=== PATIENT | female | born 1960 | race Caucasian/White ===

== ENCOUNTER → 2017-12-23 | Outpatient (CLI) | payer OTHER ==
[~2017-12-23] MED LIST: BIOTIN10000 MC1 PO; CITRACAL-VIT D1 EACH PO; COLACE 100 MG100 MG PO; CRANBERRY500 M3 PO; EFFEXOR XR150 MG PO; FLEXERIL PO; NEURONTIN 300300 M1 PO; OZEMPIC0.25 MG/0. SUBQ; PROBIOTIC1 EAC1 PO; ROXICODONE5 M2 PO; ZYRTEC10 M5 PO; bariatric vitamin PO
--- NOTE | 2017-12-24 14:20 | PAINCON ---
[address] [address] PAIN MANAGEMENT CONSULTATION Name: ISABELLE VELOZ [id number] Admission: 12/23/17 Attend Phys: Vahe Dowling MD Discharge: Date of : 58 Report #: [id number] THIS REPORT FOR: //name// CC: Anitha Dowling DATE OF SERVICE: 12/23/2017 CHIEF COMPLAINT: Cervical pain and I have moved back to [place] from [place]. FOLLOWUP HISTORY: The patient is a 57-year-old female who lived in [place]. Her work for a gas company. They had to relocate in [place]. They have returned to [place]. She is happy with that. At this juncture, she would like to reestablish with a Pain Clinic. The patient has pain and discomfort in her shoulders, neck down in both arms, has had some stiffness in the middle of her back. She rates her pain as a 5/10 today. Sometimes it rates at a 7/10. She has had cervical fusion at C6-C7 about 2 years ago because of degenerative joint disease. She is limited in her ability to use her medications. She is unable to take medications with Tylenol secondary to some elevated liver function test. The patient states that she has a fatty liver. She has had a gastric bypass in the past. She has some generalized pain in her neck, tailbone, mid back area, and left arm. She states that she has been seen by a neurologist in the past. At that time, she was noted to have some lesions which were not inconsistent with multiple sclerosis. She is not having any symptomatology at this juncture. She has noted on occasion some numbness in her left face as well as some numbness in the foot and leg. She has a history of depression. ALLERGIES: SULFA ANTIBIOTICS. CURRENT MEDICATIONS: Venlafaxine 150 mg. Gabapentin 300 mg t.i.d. Oxycodone 5 q.8 hours p.r.n. for chronic pain, the patient takes 3 tablets per day, she is out of them at this juncture. Cyclobenzaprine 10 mg t.i.d. Bariatric multivitamins 6 every day. Biotin 1000 mcg daily. Citracal 500 international units. Calcium 630 mg. Probiotic 10 Ultra Strength. Stool softener. Docusate 100 mg 6 daily. Zyrtec. Cranberry 15,000 mg supplement. PAST MEDICAL HISTORY: Chronic pain; bilateral carpal tunnel; diabetes, improved after gastric bypass, lost greater than 100 pounds; depression; multiple sclerosis with MRI findings without physical manifestations at this point; and cervical radiculopathy. PAST SURGICAL HISTORY: Cholecystectomy in 1992, parathyroidectomy 1999, hysterectomy in 2012, Casie-en-Y gastric bypass in 2014, spine cervical C5/C6 [place] [address] PAIN MANAGEMENT CONSULTATION Name: ISABELLE VELOZ [id number] Admission: 12/23/17 Attend Phys: Vahe Dowling MD Discharge: Date of : 58 Report #: [id number] fusion 2016, rotator cuff surgery, left 2017, and stem cell injection, right knee with improvement 2017. SOCIAL HISTORY: She is retired. Has not worked for the last 4 years. Rarely drinks alcoholic beverages. REVIEW OF SYSTEMS: Questionnaire 12-point, generally good health, recent weight change, fatigue, weakness, headaches, hearing loss/ringing in the ears, swelling in the feet, ankle, and hands, incontinence, joint pain, joint stiffness, weakness of muscles and joints, muscle pain with cramps, back pain, varicose veins, numbness and tingling sensation as described above, and depression. LABORATORY DATA: No new laboratory is available, but old imaging indicates right knee pain, two views. Examination consists of 2 views. There is moderate joint space narrowing with endplate sclerosis and osteophyte formation involving the patellofemoral and medial femoral/tibial compartments with mild degenerative changes involving the lateral femoral/tibial compartment. No fracture or joint effusion is seen. Impression: Moderate to mild osteoarthritis. Exam left shoulder dated 04/10/2017, there is hypertrophic spurring along the undersurface of the AC joint capsule that may be indicative of impingement. There are hypertrophic changes about the greater tuberosity. There is no fracture or dislocation. Summary: Osteoarthritic spurring along the underside of the AC joint capsule. On 03/21/2017, pressure in shoulders, weightbearing view. There is preservation of the cervical lordosis with post-op fusion of C5 and C6. The fixation hardware appears intact. There are osteoarthritic changes affecting the zygapophyseal joints at the same level bilaterally is seen in the AP image. Open mouth study shows there is a narrowing of C1/C2 articulation, but the lateral mass of C1 is not displaced with respect to the body of C2. Summary: Post-op fusion changes at C5/C6 without osteoarthritic changes of the facets at the same level bilaterally. On 09/04/2016, medial knee pain, right. MRI: There is hypertrophic spurring about the medial/lateral and patellofemoral joints. There is mild osteochondral irregularity over the anterior articular surface of the lateral femoral condyle. There is focal bone marrow edema anteriorly within the lateral femoral condyle and moderate bone marrow edema anteriorly at the periphery of the medial tibial plateau. This is most likely degenerative. A joint effusion, small is present. Impression: There are degenerative changes about the knee. There is a tear of [facility] [address] [place] [address] PAIN MANAGEMENT CONSULTATION Name: ISABELLE VELOZ [facility]#: [id number] Admission: 12/23/17 Attend Phys: Vahe Dowling MD Discharge: Date of : 58 Report #: [id number] the medial meniscus. Electrodiagnostic laboratory dated 03/25/2017: EMG/NCV: Impression: 1. Abnormal nerve conduit activity. Today's electrodiagnostic evaluation is consistent with bilateral medial neuropathies at the wrist. These findings are consistent with the clinical diagnosis of carpal tunnel syndrome. There is mild evidence of denervation of the left APD muscle. 2. Abnormal EMG findings indicated neuropathic problem at/or proximal to the intervertebral foramen at the C6/5 level, matching the clinical impression of cervical radiculopathy involving the C5 nerve root. PAIN CLINIC ASSESSMENT: 1. History of osteoarthritis. The patient does have osteoarthritic changes in her knee as well as in her neck. 2. Height 5 feet 7 inches. Weight 230 pounds, BMI is 36. 3. VITAL SIGNS: Blood pressure 124/71, heart rate 76, respiratory rate 16, room air saturation 100%, and temperature 98.7. 4. Pain intensity 4/10. 5. Fall risk. The patient has not fallen in the last 3 months. 6. Blood thinner. The patient is not on a blood thinning medication. 7. History of hypertension. The patient is not being treated for hypertension. 8. Opioid therapy greater than 6 weeks. The patient is receiving oxycodone and has signed a contract to get her medication from one physician. 9. Risk assessment tool, low for opioid use. 10. Functional assessment tool. 11. Pain impact score 39/70, which indicates moderate amount of problems with activities of daily living secondary to her chronic pain. 12. Recreational drug use. The patient denies use of recreational drugs. 13. Tobacco: The patient denies use of tobacco. 14. Alcohol: The patient denies use of alcoholic beverages. PHYSICAL EXAMINATION: GENERAL: The patient is a well-developed, slightly obese white female. She appears her stated age. She is alert and oriented x 3. Speech is fluent. Affect is appropriate. HEENT: Normocephalic, atraumatic. Extraocular eye muscles intact. Sclerae nonicteric. Hearing within normal limits. Mucous membranes are moist. The patient sometimes has numbness in her left face. NECK: Without adenopathy or bruits. Two well-healed scars in the anterior portion of her neck, one from the cervical fusion, another for the parathyroidectomy, both well-healed and not noticeable. HEART: Regular rate. S1, S2. Mild systolic ejection murmur. LUNGS: Clear to auscultation without rales, rhonchi or wheezing. ABDOMEN: Protuberant. EXTREMITIES: Upper extremity muscle strength is judged to be 5/5. [place] [address] PAIN MANAGEMENT CONSULTATION Name: ISABELLE VELOZ Room: [facility]#: [id number] Admission: 12/23/17 Attend Phys: Vahe Dowling MD Discharge: Date of : 58 Report #: [id number] has some pain and discomfort in the left arm. Deep tendon reflexes are +1 in the left and right arm without triceps or brachioradialis reflexes. Muscle technician assistant strength 5/5. Lower extremity muscle strength is judged to be 5/5 without sensory changes. Ankle reflexes are absent. Patellar reflex is absent. The patient sometimes notes some numbness in her foot. She feels that that might be associated with the MS. IMPRESSION: 1. History of cervical radiculopathy. 2. Back pain with some lumbosacral pain. 3. Chronic left shoulder pain. 4. Depression. 5. Multiple sclerosis. 6. Elevated liver function test. 7. Type 2 diabetes without complications. 8. History of gastrointestinal problems/irritation secondary to gastric bypass surgery -- the patient does not take nonsteroidal anti-inflammatory medications because of this. RECOMMENDATIONS: We have discussed treatment options with the patient. She feels that her use of oxycodone 5 mg 1 p.o. t.i.d. has been quite beneficial over time. She would like to continue with this medication. States that she gets her medications from one source. Has not had a problem with this medication in the past and would like to have a continued. She finds that Flexeril 10 mg 1 p.o. t.i.d. is helpful with muscle spasms. Also, she feels that gabapentin remains helpful with the pain. She would like to continue with this. She has had some problems with elevated liver function test. Therefore, we will use oxycodone/Roxicodone without Tylenol. We will provide the patient with a script for oxycodone. She will take this medication as prescribed. We have discussed the problems with opioid medications. They can cause addiction as well as tolerance with prolonged use. The patient feels that these medications are helpful and would like to continue their use. The patient is also scheduled to follow up with physical therapy by her primary. We would like to thank you for letting us participate in her care. We hope she continues to improve. <ELECTRONICALLY SIGNED> By: Vahe Dowling MD 12/24/17 1420 [id number]. Joe Dowling MD /nt
== END ==
LOC: M.PC 00:28
DX: M19.012 Primary osteoarthritis, left shoulder (principal); M17.11 Unilateral primary osteoarthritis, right knee; M54.12 Radiculopathy, cervical region; E11.9 Type 2 diabetes mellitus without complications; M25.712 Osteophyte, left shoulder; G89.29 Other chronic pain; M25.512 Pain in left shoulder; G35 Multiple sclerosis; F32.9 Major depressive disorder, single episode, unspecified; R79.89 Other specified abnormal findings of blood chemistry

== ENCOUNTER → 2018-01-21 | Outpatient (CLI) | payer OTHER ==
--- NOTE | 2018-01-22 07:04 | PAINCON ---
[facility] [address] [place] [address] PAIN MANAGEMENT CONSULTATION Name: ISABELLE VELOZ Room: [facility] L[facility]#: [id number] Admission: 01/21/18 Attend Phys: Sarah Nicole Discharge: Date of : 58 Report #: [id number] THIS REPORT FOR: //name// CC: Anitha Nevarez DATE OF SERVICE: 01/21/2018 The patient is a 57-year-old female being treated for cervical radiculopathy, status post ACDF with osteoarthritis affecting multiple joints, primarily right knee. Last seen in pain clinic 12/23/2017, seen in consultation by Dr. Joe Dowling. Continued on oxycodone 5 mg t.i.d., Flexeril as needed. History of increased LFTs noted, hence no acetaminophen ordered with the oxycodone nor recommendations for extensive use of NSAID agents. The patient returns to pain clinic today. She notes she had a stem cell injection of the right knee last fall at [facility], feels that this is efficacious, still has paresthesia in the left side of her body literally from her head to her foot. States she has been followed by neurology for "brain lesions" on diagnostic studies that were felt to be compatible with multiple sclerosis. She is seeing a neurologist, I believe later next week. She notes following a left rotator cuff repair surgery in April 2017 with physical therapy, the left arm is getting a little better, still some pain in the left shoulder. Primary pain is low back, buttock. The patient was following bariatric surgery in May 2015 (the patient's maximum weight was 317. She had a theodora of 190 pounds). Her axial back pain did improve. PHYSICAL EXAMINATION: GENERAL: Currently, she notes her subjective pain score is 1 on a VAS. Weight is up a little bit again up to about 240 pounds, BMI is 37.9 kilograms per meter squared. VITAL SIGNS: Blood pressure 128/78, pulse 83, respirations 16. NECK: Cervical range of motion is actually remarkably good status post ACDF. Still some weakness in the left shoulder with range of motion, primary cervical radicular symptoms and axial back pain. Rises from chair using armrest. Gait is tandem. We reviewed the fact that opiate medications are being used to provide analgesia adequate to support activities of daily living, not attempting to achieve a specific pain score on the 0-10 Visual Analog Scale. The current opiate medications are providing sufficient analgesia to allow the patient to participate in activities of daily living. The patient is not exhibiting any aberrant behavior suggestive of drug diversion. [place] [address] PAIN MANAGEMENT CONSULTATION Name: ISABELLE VELOZ [id number] Admission: 01/21/18 Attend Phys: aSrah Nicole Discharge: Date of : 58 Report #: [id number] adverse reactions to medications. The patient is not suffering from daytime somnolence or mental acuity changes. The patient is managing opiate-induced constipation with appropriate [id number]-[id number] agents and dietary considerations. The patient was counseled on concern for caution with operating a motor vehicle while using opiate medications. A physical exam was performed and the patient's functional status was evaluated. All patients with back pain were advised against the bed rest greater than 4 days and were advised to return to normal activities. Pain score assessment was noted and the treatment plan was reviewed with the patient. All current medications, both prescribed and OTC were reviewed and reconciled on the electronic medical record. Tobacco screening was accomplished and smoking cessation was advised when indicated. BMI was noted and diet/exercise modification was recommended for all patients following outside normal parameters. I reviewed with the patient today their responsibilities to safeguard prescription medications, reviewed their responsibility to utilize medications only as prescribed by the physician. They are to seek and receive pain medications only from 1 physician group ( [facility]). They are to use 1 pharmacy and keep the clinic informed if they change pharmacies. Their responsibilities include making followup visits in a timely fashion and to avoid abrupt discontinuation of medication usage. Their responsibilities further include bringing their medications (bottles from the pharmacy with residual pills) to the visit for possible confirmation of pill counts and the patient understands it is their responsibility to submit to random drug screens to ensure both that the medications prescribed are present, and that no other controlled substances are present. All prescriptions provided today were generated electronically. ASSESSMENT: Symptomatic axial back pain, cervical radiculopathy, status post anterior cervical discectomy and fusion and osteoarthritis affecting right knee requiring complex medication management. RECOMMENDATIONS: I have taken the liberty of renewing oxycodone 5 mg t.i.d. Follow up with Dr. Joe Dowling. She has a neurology workup for left-sided paresthesia (MS?). We will defer any interventional therapy, i.e. cervical epidural injection, etc. until neurology exam is complete. <ELECTRONICALLY SIGNED> By: Niko Nevarez DO 01/22/18 0704 [id number] [id number] Nevarez DO /nt
== END ==
LOC: M.PC 01-20 09:40
DX: M54.12 Radiculopathy, cervical region (principal); M17.11 Unilateral primary osteoarthritis, right knee; Z79.899 Other long term (current) drug therapy

== ENCOUNTER → 2018-02-24 | Outpatient (CLI) | payer OTHER ==
--- NOTE | 2018-02-27 08:37 | PAINCON ---
[address] [address] PAIN MANAGEMENT CONSULTATION Name: ISABELLE VELOZ [facility] [id number] Admission: 02/24/18 Attend Phys: Vahe Dowling MD Discharge: Date of : 58 Report #: [id number] THIS REPORT FOR: //name// CC: Anitha Dowling DATE OF SERVICE: 02/24/2018 CHIEF COMPLAINT: Pain in the back, neck and shoulders. HISTORY OF PRESENT ILLNESS: The patient has been seen in the Pain Clinic as a result of moving and relocating to [place]. 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 She has come to the Pain Clinic to reestablish a pain clinic presence. She has had a cervical fusion at the C6-C7 about 2 years ago because of degenerative joint disease. Still has some limited ability to engage in activities of daily living because of the pain. She does have elevated liver function tests. She is unable to take Tylenol medication. She also says there is a fatty component to the liver problem. She has had a gastric bypass in the past. She has generalized pain in her neck, tailbone, mid back and left arm. She has been seen in the past by a neurologist. She has been told that she has some lesions in her brain that are somewhat consistent with multiple sclerosis. At this time, she is having episodic problems with some numbness in her left face, left foot and leg. She also has a history of depression. She is going to be examined with EMG testing in the future. The patient stopped the use of gabapentin. She is not sure that she noticed a significant change in her pain or discomfort. She feels that she continues to have "internal tremors." They have affected her left side. She feels that the oxycodone and Flexeril are beneficial. Rates her pain as a 3/10 at this juncture. ALLERGIES: SULFA. CURRENT MEDICATIONS: Venlafaxine 150 mg, the patient stopped gabapentin, oxycodone 5 one q. 8 hours p.r.n. for chronic pain, the patient takes up to 3 tablets per day. Cyclobenzaprine 10 mg t.i.d., multivitamins, biotin 1000 mcg, Citracal 500 international units, calcium 630 mg, Probiotic 10 Ultra Strength, stool softener, Docusate 100 mg 6 daily, Zyrtec, cranberry 15,000 mg supplement. PAIN CLINIC ASSESSMENT: 1. History of osteoarthritis. The patient feels that she has arthritic changes in her spine, has had neck surgery in the C6-C7 area. 2. Height 5 feet 7 inches, weight 232 pounds, BMI is 36.3. 3. Vital Signs: Blood pressure 131/72, heart rate 85, respiratory rate 16, room air saturation 98%, temperature 98.0. 4. Pain score 3/10. [place] [address] PAIN MANAGEMENT CONSULTATION Name: ISABELLE VELOZ [facility] [id number] Admission: 02/24/18 Attend Phys: Vahe Dowling MD Discharge: Date of : 58 Report #: [id number] 5. Fall risk. The patient has not fallen in the last 3 months. 6. Blood thinner. The patient is not on a blood thinning medication. 7. History of hypertension. The patient is not being treated for hypertension. 8. Opioid therapy greater than 6 weeks. The patient is receiving opioid medication from the Pain Clinic with her [facility]. 9. Risk assessment tool, low for opioid use. 10. Functional assessment tool. 11. Recreational drug use. 12. Tobacco. 13. Alcohol use. The patient denies use of any of these items. PHYSICAL EXAMINATION: GENERAL: The patient is a well-developed white female. Slightly obese. Affect is appropriate. Speech is fluent. HEENT: Normocephalic, atraumatic. Extraocular eye muscles intact. Sclerae nonicteric. Mucous membranes are moist. Hearing is within normal limits. NECK: Without complaints of adenopathy. At this juncture, well-healed scar. HEART: Regular rate. ABDOMEN: Nontender. LUNGS: Clear to auscultation. EXTREMITIES: Upper extremity muscle strength is judged to be 5/5 for the major muscle groups in the upper extremity. The patient is without significant scoliosis, kyphosis or lordosis. The patient complains of some pain and numbness on the left side of her body involving her arms and head. She has some mid back discomfort. IMPRESSION 1. Benign multiple sclerosis. 2. Fatty liver. 3. History of gastric bypass. 4. Mid back pain. 5. Left arm pain. 6. History of depression. 7. History of cervical radiculopathy. RECOMMENDATIONS: We discussed treatment options with the patient. We will continue with her current medications. A script for her medications have been rewritten. The patient states that the MRI showed some new lesions in her brain. The patient states that she is going to have EMG study done in the near future. The patient states that she gets "tremors as a result of her benign multiple sclerosis. We will renew her medications of oxycodone 5 mg q. 8 hours p.r.n., Flexeril 10 mg t.i.d., biotin 10,000 mg, vitamin D3, Zyrtec 10 mg, Cranberry extract, Colace 100 mg capsules 6 times daily for constipation, lactobacillus probiotic, Effexor XR 150 mg, multivitamin, Ozempic 0.25 mg per week injection. She will follow up in the future as [place] [address] PAIN MANAGEMENT CONSULTATION Name: ISABELLE VELOZ Room: [facility]#: [id number] Admission: 02/24/18 Attend Phys: Vahe Dowling MD Discharge: Date of : 58 Report #: [id number] thank you for letting us participate in her care. We hope she continues to improve. <ELECTRONICALLY SIGNED> By: Vahe Dowling MD 02/27/18 0837 0037 [id number]. Joe Dowling MD /nt
== END ==
LOC: M.PC 04:49
DX: M54.12 Radiculopathy, cervical region (principal); G35 Multiple sclerosis; K76.0 Fatty (change of) liver, not elsewhere classified; M54.5 Low back pain; M25.512 Pain in left shoulder

== ENCOUNTER → 2018-03-24 | Outpatient (CLI) | payer OTHER ==
--- NOTE | 2018-04-27 10:30 | PAINCON ---
[address] [address] PAIN MANAGEMENT CONSULTATION Name: ISABELLE VELOZ Room: [facility] MAXIMINO Lentz#: [id number] Admission: 03/24/18 Attend Phys: Vahe Dowling MD Discharge: Date of : 58 Report #: [id number] THIS REPORT FOR: //name// CC: Anitha Dowling DATE OF SERVICE: 03/24/2018 COMPLAINT: Back, neck, and shoulder pain. HISTORY OF PRESENT ILLNESS: The patient is a 57-year-old female who has been followed in the Pain Clinic because of chronic cervical pain. She has pain and discomfort involving her neck, back and shoulders. It has been problematic since 2016. As you recall, she relocated to [place]. 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 She has a history of cervical fusion at C6-C7. She still notes some pain and discomfort involving her neck. This is improved significantly with use of her medication oxycodone. Takes about 3 tablets daily. She also has some problems with her liver. We have purposely decreased the amount of Tylenol that she gets. She has been seen in the past by a neurologist, told that she has some lesions in her brain that are somewhat consistent with multiple sclerosis. She has not noticed any new problems since we saw her last. She had been having problems with numbness in her left face, left foot and leg. Has a history of depression. Feels overall that her pain medications are helpful and rates her pain as a 4/10. ALLERGIES: SULFA. CURRENT MEDICATIONS: Venlafaxine 150 mg, oxycodone 5 mg q.8h. p.r.n. chronic pain, cyclobenzaprine 10 mg t.i.d., multivitamin, biotin 1000 mcg, Citracal 500 IU, calcium 630 mg, probiotic, stool softener, docusate 100 mg 6 daily, Zyrtec, cranberry 15,000 mg supplement. PAIN CLINIC ASSESSMENT: 1. History of osteoarthritis. The patient does have some arthritic changes in her spine. Has had surgery with fusion in her neck at C6-C7. 2. Height 5 feet 7 inches, weight 227 pounds, BMI is 36. 3. Vital signs: Blood pressure 123/64, heart rate 81, respiratory rate 16, room air saturation 96%, temperature 98.3. Pain score 4/10. 4. Fall risk. The patient has not fallen in the last 3 months. 5. Blood thinner. The patient is not on a blood thinning medication. 6. Hypertension. The patient is not being treated for hypertension. 7. Opioids. The patient receives her medications from [facility], the [facility]. 8. Risk assessment tool, low for use of opioid. 9. Functional assessment tool. 10. Recreational drug use. The patient denies [place] [address] PAIN MANAGEMENT CONSULTATION Name: ISABELLE VELOZ [facility] [id number] Admission: 03/24/18 Attend Phys: Vahe Dowling MD Discharge: Date of : 58 Report #: [id number] 11. Tobacco: The patient denies use of tobacco. 12. Alcohol: The patient denies use of alcoholic beverages. PHYSICAL EXAMINATION: GENERAL: The patient is a well-developed, well-nourished white female. Appears appropriate for age. Slightly obese. Speech is fluent. HEENT: Normocephalic and atraumatic. Extraocular eye muscles intact. Sclerae nonicteric. Mucous membranes are moist. Hearing is within normal limits. NECK: Without complaints or adenopathy. At this juncture, the patient has well-healed scar in the anterior portion of her neck. HEART: Regular rate and rhythm. ABDOMEN: Nontender. LUNGS: Clear to auscultation. EXTREMITIES: Upper extremity muscle strength is judged to be 5/5 for the major muscle groups. The patient is without significant scoliosis, kyphosis or lordosis. The patient does complain of some pain and discomfort and numbness in the left side of her body involving her arms, head, has some in the area of her face. Has some mid back discomfort as well. ASSESSMENT: 1. Benign multiple sclerosis. 2. Fatty liver. 3. History of gastric bypass. 4. Mild back pain. 5. Left arm pain. 6. History of depression. 7. History of cervical radiculopathy. RECOMMENDATIONS: We discussed treatment options with the patient. We will continue with her current medical regimen of oxycodone 5 mg. The patient has been given a script for oxycodone as well as Flexeril. She will continue to take these medications as prescribed. She states that they are not causing any problems with her mentation or ability to engage in activities of daily living. She will call us if she has any problems with her medications. We would like to thank you for letting us participate in her care. We hope she continues to improve. <ELECTRONICALLY SIGNED> By: Vahe Dowling MD 04/27/18 1030 1021 [id number]. Joe Dowling MD /nt
== END ==
LOC: M.PC 04:47
DX: M54.12 Radiculopathy, cervical region (principal); K76.0 Fatty (change of) liver, not elsewhere classified; G35 Multiple sclerosis; M25.512 Pain in left shoulder; M54.5 Low back pain; F32.9 Major depressive disorder, single episode, unspecified; G89.29 Other chronic pain; Z79.899 Other long term (current) drug therapy

== ENCOUNTER → 2018-04-21 | Outpatient (CLI) | payer OTHER ==
--- NOTE | 2018-04-27 10:00 | PAINCON ---
[address] [address] PAIN MANAGEMENT CONSULTATION Name: ISABELLE VELOZ Room: [facility] V[facility]NIE Mary Carmen#: [id number] Admission: 04/21/18 Attend Phys: Vahe Dowling MD Discharge: Date of : 58 Report #: [id number] THIS REPORT FOR: //name// CC: Anitha Dowling DATE OF SERVICE: 04/21/2018 FOLLOWUP HISTORY: Neck pain, back pain and shoulder pain. HISTORY: The patient is a 57-year-old female who has been followed in the pain clinic because of cervical radicular pain. She has pain and discomfort, which radiates down into her arm, back and shoulders. She notes that this has been problematic since 2016. She and her are relocated [facility]. She works for the [employer]. Has had a cervical fusion at C6/C7. Still has pain and discomfort involving her neck. Also, has some problems with MS. Overall, her MS is reasonably controlled at this juncture. Notes that with the multiple sclerosis that there is a tremor associated with it. Weather has changed a little bit and she has left tremor. Notes that the multiple sclerosis, symptomatology improved in the cold weather, but the neck and shoulder is exacerbated by the cold weather. Feels that things are going reasonably well. She returned today for renewal of her medications. She has taken the medication as prescribed. Feels that Flexeril is helpful as well. Notes that activities of daily living can be very strenuous and challenging. ALLERGIES: SULFA. CURRENT MEDICATIONS: Venlafaxine 150 mg, oxycodone 5 mg q.8 hours p.r.n., chronic pain, Flexeril 10 mg t.i.d., multivitamin, biotin 1000 mcg, Citracal 500 mg, calcium 600 mg, probiotic, stool softener, docusate 100 mg 6 times daily, Zyrtec, cranberry 15,000 mg supplement. PAIN CLINIC ASSESSMENT/PQRS: 1. History of osteoarthritis. The patient has some arthritic changes involving her knee. She has undergone a stem cell injection involving the right knee. 2. Arthritis rheumatoid the patient has not been treated for rheumatoid arthritis. 3. Height 5 feet 7 inches, weight 222 pounds, BMI is 34.8. 4. Vital signs: Blood pressure 121/68, heart rate 84, respiratory rate 16, room air saturation 99% and temperature 98.2. 5. Pain intensity 09/20. 6. Fall risk. The patient has not fallen in the last 3 months. 7. Blood thinner. The patient is not on a blood thinning medication. 8. Hypertension. The patient is being treated for hypertension. 9. Opioid greater than 6 weeks. The patient is on opioid regimen medicine. Get it from one source, [place] [address] PAIN MANAGEMENT CONSULTATION Name: ISABELLE VELOZ Room: [facility]#: [id number] Admission: 04/21/18 Attend Phys: Vahe Dowling MD Discharge: Date of : 58 Report #: [id number] 10. Risk assessment tool, low for opioid use. 11. Functional assessment tool. 12. Recreational drug use. The patient denies. 13. Tobacco: The patient denies use of tobacco. 14. Alcohol: The patient denies use of alcoholic beverages. PHYSICAL EXAMINATION: GENERAL: The patient is a well-developed, well-nourished white female. Appears her stated age. Slightly obese. Speech is fluent. HEENT: Normocephalic, atraumatic. Extraocular eye muscles are intact. Sclerae nonicteric. Mucous membranes are moist. Hearing is within normal limits. NECK: Without adenopathy. Has some limited movement in her neck secondary to her anterior fusion. There is a well-healed scar on the anterior portion of her neck. HEART: Regular rate. S1, S2. ABDOMEN: Nontender. Bowel sounds present. LUNGS: Clear to auscultation without rhonchi or rales. EXTREMITIES: Upper extremity strength 5/5 for the major muscle groups. The patient is without significant scoliosis, kyphosis or lordosis. The patient does complain of pain and discomfort with some numbness in the left side of her body involving her arms, head and some in the area of her face. Has had some mild back discomfort as well. ASSESSMENT: 1. Benign multiple sclerosis-stable, improved with cooling temperatures. 2. Fatty liver. 3. History of gastric bypass. 4. Mild back pain. 5. Left arm pain. 6. History of depression. 7. History of cervical radiculopathy status post fusion. RECOMMENDATIONS: We discussed treatment options with the patient. At this juncture, she feels that her medications are working reasonably well. She is not having any problems with her medications. We have discussed the use of opioid medications and their possible complications. She is on a reasonable amount of medications. She has been on it for quite some time. It seems stable. I think it is a good level. It enables her to engage in activities of daily living she has much more problems participating in without its use. We will renew her medication. She will call us if she has any concerns. We would like to thank you for letting us participate in her care. We hope she continues to improve. <ELECTRONICALLY SIGNED> By: Vahe Dowling MD 04/27/18 1000 [id number] 1023N. Joe Dowling MD /nt
== END ==
LOC: M.PC 04:30
DX: M19.90 Unspecified osteoarthritis, unspecified site (principal); F11.20 Opioid dependence, uncomplicated; I10 Essential (primary) hypertension; M06.9 Rheumatoid arthritis, unspecified

== ENCOUNTER → 2018-05-19 | Outpatient (CLI) | payer OTHER ==
--- NOTE | 2018-05-27 16:38 | PAINCON ---
[address] [address] PAIN MANAGEMENT CONSULTATION Name: ISABELLE VELOZ Room: [facility] MAXIMINO Lentz#: [id number] Admission: 05/19/18 Attend Phys: Vahe Dowling MD Discharge: Date of : 58 Report #: [id number] THIS REPORT FOR: //name// CC: Anitha Dowling DATE OF SERVICE: 05/19/2018 FOLLOWUP COMPLAINT: Here for medication renewal of her about CBD oil, wonder is it worse using. FOLLOWUP HISTORY: The patient is a 57-year-old female who has followed in the pain clinic because of cervical radiculopathy. She continues to have pain and discomfort. Notes the pain radiates down into her arm, back and shoulders, has been problematic since 2016. She and her have relocated to [place]. She works for the [employer], has had a cervical fusion at C6-C7. Still continues to have pain and discomfort involving her neck. Has some problems with multiple sclerosis. Overall, she feels that things are going reasonably well. Her multiple sclerosis is stable at this juncture. Does have a tremor associated with it. Notes some changes in the weather, this affects her pain as well. She has pain that radiates down into her neck and into her shoulders when the weather is colder. She feels that her medications of oxycodone continue to be efficacious. She would like to have her medications renewed. ALLERGIES: SULFA. CURRENT MEDICATIONS: Venlafaxine 150 mg, oxycodone 5 mg 1 p.o. every 8 hours chronic pain, Flexeril 10 mg t.i.d., multivitamin, Biaxin 1000 mcg, Citracal 500 mg, calcium 600 mg, probiotic, stool softener, docusate 100 mg 6 times daily, Zyrtec, cranberry 15,000 mg supplements. PAIN CLINIC ASSESSMENT/PQRS: 1. History of osteoarthritis with arthritic changes involving her knee, has undergone stem cell injections in the knee on the right and found that beneficial. The patient is not being treated for rheumatoid arthritis. 2. Height 5 feet 7 inches, weight 222 pounds, BMI is 34.7. 3. Vital signs: Blood pressure 126/77, heart rate 77, respiratory rate 16, room air saturation is 99, temperature 97.9. 4. Pain intensity 4 out of 10. 5. Fall risk. The patient has not fallen in the last 3 months. 6. Blood thinner. The patient is not on a blood thinning medication. 7. Hypertension. The patient is being treated for hypertension. 8. Opioids greater than 6 weeks. The patient gets her medication from one source, the pain clinic. 9. Risk assessment tool, low for overuse. 10. [place] [address] PAIN MANAGEMENT CONSULTATION Name: ISABELLE VELOZ Room: [facility]#: [id number] Admission: 05/19/18 Attend Phys: Vahe Dowling MD Discharge: Date of : 58 Report #: [id number] 11. Recreational drug use. The patient denies use of recreational drugs. 12. Tobacco: The patient denies use of tobacco. 13. Alcohol: The patient denies use of alcoholic beverages. PHYSICAL EXAMINATION: GENERAL: The patient is well-developed, well-nourished white female. Appears her stated age. She is slightly obese. Speech is fluent. Status post gastric bypass, states that her weight is sometimes fluctuating. It is decreased and at this juncture, HEAD, EYES, EARS, NOSE, AND THROAT: Normocephalic, atraumatic. Extraocular eye muscles intact. Sclerae nonicteric. Mucous membranes are moist. Hearing is within normal limits. NECK: Without adenopathy. The patient has some limited movement in her neck secondary to anterior fusion, has a well-healed scar on the anterior portion of her neck. HEART: Regular rate. S1, S2. ABDOMEN: Nontender, bowel sounds present. LUNGS: Clear to auscultation without rhonchi or rales. EXTREMITIES: Upper extremity muscle strength 5/5 for the major muscle groups. The patient is without significant scoliosis, kyphosis or lordosis. The patient complains of pain and discomfort with some numbness in her left side of her body involving her arms, head and some areas of her face associated with the multiple sclerosis. Some mild back pain and discomfort as well. ASSESSMENT: 1. Benign multiple sclerosis, stable -- improved with cooling temperatures. 2. Fatty liver. 3. History of gastric bypass. 4. Mild back pain. 5. Left arm pain. 6. History of depression. 7. History of cervical radiculopathy status post fusion. RECOMMENDATIONS: We discussed treatment options with the patient. At this juncture, she feels that her medications are working reasonably well. I do not have any problems with her medications. She has seen the advertisement for CBD oil. She has some inquiries as to whether or not this would be helpful for her. I explained that I am not really that well versed on it. In some places it is legal. I think it would be a reasonable thing to try if she felt that it might be beneficial. She have to get information from those who sell the medication. We will continue with her current medication regimen. She will call us if she has any problems. A script for oxycodone 5 mg 1 p.o. t.i.d. has been rewritten. [place] [address] PAIN MANAGEMENT CONSULTATION Name: ISABELLE VELOZ Room: [facility]#: [id number] Admission: 05/19/18 Attend Phys: Vahe Dowling MD Discharge: Date of : 58 Report #: [id number] We would like to thank you for letting us to participate in her care. We hope she continues to improve. <ELECTRONICALLY SIGNED> By: Vahe Dowling MD 05/27/18 1638 1027 1329N. Joe Dowling MD /[facility]
== END ==
LOC: M.PC 08:13
DX: G35 Multiple sclerosis (principal); K76.0 Fatty (change of) liver, not elsewhere classified; M54.5 Low back pain; M79.602 Pain in left arm; Z86.59 Personal history of other mental and behavioral disorders; Z98.84 Bariatric surgery status; Z79.899 Other long term (current) drug therapy; Z87.410 Personal history of cervical dysplasia

== ENCOUNTER → 2018-06-16 | Outpatient (CLI) | payer OTHER ==
--- NOTE | ~2018-06-16 | PAINCON ---
[facility] [address] [place] [address] PAIN MANAGEMENT CONSULTATION Name: ISABELLE VELOZ Room: [facility].#: [id number] Admission: 06/16/18 Attend Phys: Vahe Dowling MD Discharge: Date of : 58 Report #: [id number] THIS REPORT FOR: //name// CC: Anitha Dowling DATE OF SERVICE: 06/16/2018 FOLLOWUP COMPLAINT: Here for medications. Still having pain and discomfort in the upper neck area, shoulder, and back. FOLLOWUP HISTORY: The patient is a 57-year-old female who is followed in the pain clinic because of cervical radiculopathy. She continues to have pain and discomfort. Feels that her medications of oxycodone 5 mg 1 p.o. t.i.d. continues to be beneficial. Has pain that radiates down into her arms, back, shoulder and this has been problematic since 2016. As you may recall, she and her relocated to [place]. She has had surgery in the neck area. A cervical fusion at C6-C7 has been undertaken. As you may recall, she has some problems with multiple sclerosis. Overall, things in regards to her multiple sclerosis is reasonably stable. Does have some tremor associated with it. Notes that when the weather changes, the pain could be more problematic. The cold weather has not been very problematic. Warm weather is more of a problem. The patient has pain that is radiating down into her neck, shoulders, and feels that the oxycodone medication enable her to stay gainfully employed. She works for the [employer] company. ALLERGIES: SULFA. CURRENT MEDICATIONS: Venlafaxine 150 mg, oxycodone 5 mg one p.o. q.8 hours p.r.n., Flexeril 10 mg t.i.d., multivitamin, Biaxin 1000 mcg, Citracal 500 mg, calcium 600 mg, probiotic, stool softener, docusate 100 mg 6 times daily, Zyrtec, cranberry 15,000 mg supplements. PAIN CLINIC ASSESSMENT/PQRS: 1. History of osteoarthritis involving the knee. The patient has pain in the neck area as well, status post cervical fusion at C6-C7. 2. Height 5 feet 7 inches, weight 220 pounds, BMI is 34. 3. Vital Signs: Blood pressure 119/75, heart rate 72, respiratory rate 18, room air saturation 99%, temperature 98.1. 4. Pain score 4/10. 5. Fall history: The patient has not fallen in the last 3 months. 6. Blood thinner. The patient is not on a blood thinning medication. 7. Hypertension. The patient is being treated for hypertension. 8. Opioid greater than 6 weeks. The patient receives her medications from 1 source[place] [address] PAIN MANAGEMENT CONSULTATION Name: ISABELLE VELOZ Room: [facility]#: [id number] Admission: 06/16/18 Attend Phys: Vahe Dowling MD Discharge: Date of : 58 Report #: [id number] 9. Risk assessment tool, low for narcotic use. 10. Functional assessment tool. 11. Recreational drug use. The patient denies use of recreational drugs. 12. Tobacco: The patient denies use of tobacco. 12. Alcohol: The patient denies use of alcoholic beverages. PHYSICAL EXAMINATION: GENERAL: The patient is a well-developed, well-nourished white female. Appears her stated age. She is alert and oriented x 3. Affect is appropriate. Speech is fluent. The patient is status post gastric bypass and has noted some fluctuations in her weight. HEENT: Normocephalic, atraumatic. Extraocular eye muscles intact. Sclerae nonicteric. Mucous membranes are moist. Hearing is within normal limits. NECK: Without JVD or adenopathy, some limited movement in her neck secondary to anterior fusion with a well-healed scar on the anterior portion of her neck. HEART: Regular rate. S1, S2. ABDOMEN: Nontender. Bowel sounds present. LUNGS: Clear to auscultation without rhonchi or rales. EXTREMITIES: Upper extremity muscle strength is judged to be 5-/5 for the major muscle groups in the upper extremity. The patient without significant scoliosis, kyphosis, or lordosis. The patient does complain of some pain and discomfort in the left side of her body involving her arms with some pain in the neck as well as the patient has had some face pain associated with her multiple sclerosis. Overall, things are going reasonably well. Rates her pain as 4/10. ASSESSMENT: 1. Benign multiple sclerosis -- stable. 2. Fatty liver. 3. History of gastric bypass. 4. Back pain, chronic. 5. Left arm pain. 6. History of depression. 7. History of cervical radiculopathy status post fusion. RECOMMENDATIONS: We discussed treatment options with the patient. Risks and benefits of her medication were again reviewed. The patient feels that the medications are helpful. She is getting about 70% improvement with use of her medication. She has had no complications with them. Feels that the Flexeril as well as oxycodone continue to be beneficial. She will follow up in the near future. We would like to thank you for letting us participate in her care. A script for oxycodone 5 mg 1 p.o. t.i.d. have been written. By: [id number]. Joe Dowling MD /[place]
== END ==
LOC: M.PC 05:23
DX: G35 Multiple sclerosis (principal); K76.0 Fatty (change of) liver, not elsewhere classified; G89.29 Other chronic pain; M54.5 Low back pain; F32.9 Major depressive disorder, single episode, unspecified; M54.2 Cervicalgia; M79.602 Pain in left arm; Z98.84 Bariatric surgery status

== ENCOUNTER → 2018-07-16 | Outpatient (CLI) | payer OTHER ==
--- NOTE | ~2018-07-16 | PAINCON ---
[facility] [address] [place] [address] PAIN MANAGEMENT CONSULTATION Name: ISABELLE VELOZ Room: [facility].R.#: [id number] Admission: Attend Phys: Vahe Dowling MD Discharge: Date of : 58 Report #: [id number] THIS REPORT FOR: //name// CC: Anitha Dowling DATE OF SERVICE: 07/16/2018 CHIEF COMPLAINT: Here for medication renewal. HISTORY: The patient is a 57-year-old female who has been followed in the pain clinic. She suffers from chronic pain in her upper back, shoulders, and mid back. She has been followed by the pain clinic because of cervical radiculopathy. She has pain, which she rates as 7-8/10 at this juncture. She feels that her medications of oxycodone 5 mg 1 p.o. t.i.d. continues to be beneficial. As you may recall, she has problems with her liver. She is unable to take any medications with Tylenol secondary to elevated liver function tests. She is unable to take nonsteroidal anti-inflammatory medications as well. Overall, she feels that the oxycodone medication is helpful. She has had cervical fusion at C6-C7. She also has multiple sclerosis. Overall, things feel stable at this moment. Continues to have a tremor associated with her condition. Notes that the change in weather, which is about 25 degrees today can be problematic. Continues to have some pain that radiates down her neck, shoulders, and mid back pain. ALLERGIES: SULFA. CURRENT MEDICATIONS: Venlafaxine 150 mg, oxycodone 5 mg 1 p.o. q. 8 hours p.r.n., Flexeril 10 mg t.i.d., multivitamin, Biaxin 1000 mcg, Citracal 500 mg, calcium 600 mg, probiotic, stool softener, docusate 100 mg 6 times daily, Zyrtec, and cranberry 15,000 mg supplements. PAIN CLINIC ASSESSMENT/PQRS: 1. History of osteoarthritis involving the knees. The patient has some changes in her neck and has had surgical fusion as well. This is at C6-C7. The patient is not being treated for rheumatoid arthritis. 2. Height 5 feet 7 inches, weight 215 pounds, BMI is 34. 3. Vital Signs: Blood pressure 115/70, heart rate 95, respiratory rate 16, room air saturation 99%, temperature 98.4. 4. Pain intensity 3-10. 5. Fall history: The patient has not fallen in the last 3 months. 6. Blood thinner. The patient is not on a blood thinning medication. 7. Hypertension. The patient is being treated for hypertension. 8. Opioid greater than 6 weeks. The patient receives her medication from [facility], [place] [address] PAIN MANAGEMENT CONSULTATION Name: ISABELLE VELOZ Room: [facility].#: [id number] Admission: Attend Phys: Vahe Dowling MD Discharge: Date of : 58 Report #: [id number] 9. Risk assessment tool, low for opioid use. 10. Functional assessment tool. 11. Recreational drug use. The patient denies. 12. Tobacco: The patient denies use of tobacco. 13. Alcohol: The patient denies use of alcoholic beverages. PHYSICAL EXAMINATION: GENERAL: The patient is a well-developed, well-nourished white female. Appears her stated age. She is alert and oriented x 3. Affect is appropriate. Speech is fluent. HEENT: Normocephalic, atraumatic. Extraocular eye muscles intact. Sclerae nonicteric. Mucous membranes are moist. Hearing is within normal limits. NECK: Without adenopathy, JVD. Some limitation secondary to anterior fusion, otherwise well-healed anterior neck incision. HEART: Regular rate. S1, S2. ABDOMEN: Nontender. Bowel sounds present. LUNGS: Clear to auscultation without rhonchi or rales. EXTREMITIES: Upper extremity muscle strength is judged to be 5-/5 for the major muscle groups in the upper extremity. The patient has some pain in the neck as well as the mid back and shoulder area. Notes some discomfort in the left side. ASSESSMENT: 1. Benign multiple sclerosis -- stable. 2. Fatty liver. 3. History of gastric bypass. 4. Back pain -- chronic. 5. Left arm pain. 6. History of depression. 7. History of cervical radiculopathy status post fusion C5/C6. RECOMMENDATIONS: We discussed treatment options. Overall, the patient feels things are going reasonably well. She would like to continue with the oxycodone. As you recall, she is unable to take the nonsteroidal anti-inflammatory medication secondary to history of gastric bypass. She is unable to take medicines with Tylenol secondary to elevated liver function. She has been given a script for her oxycodone 5 mg 1 p.o. t.i.d. She will call us if she has any concerns. We would like to thank you for letting us participate in her care. We hope she continues to improve. By: [id number]. Joe Dowling MD /PMT
== END ==
LOC: M.PC 09:50
DX: M54.12 Radiculopathy, cervical region (principal); M43.22 Fusion of spine, cervical region; M54.5 Low back pain; M25.512 Pain in left shoulder; K76.0 Fatty (change of) liver, not elsewhere classified; G35 Multiple sclerosis; F32.9 Major depressive disorder, single episode, unspecified; Z79.899 Other long term (current) drug therapy

== ENCOUNTER → 2018-08-13 | Outpatient (CLI) | payer OTHER ==
--- NOTE | ~2018-08-13 | PAINCON ---
[address] [address] PAIN MANAGEMENT CONSULTATION Name: ISABELLE VELOZ Room: [facility] Mary Carmen#: [id number] Admission: 08/13/18 Attend Phys: Vahe Dowling MD Discharge: Date of : 58 Report #: [id number] THIS REPORT FOR: //name// CC: Anitha Dowling DATE OF SERVICE: 08/13/2018 CHIEF COMPLAINT: Here for medication renewal. HISTORY: The patient is a 57-year-old female who has been followed in the pain clinic. As you recall, she has chronic pain involving her neck, back and shoulders of an osteoarthritic nature. She has not been treated for rheumatoid arthritis. Does have a history of cervical radiculopathy. She feels that her medications of oxycodone are helpful. She has problems with her liver. Because of her liver problems she is unable to take nonsteroidal or she is unable to take Tylenol medications because of elevated liver function tests. She is unable to take nonsteroidal anti-inflammatory medications. She has had a fusion in her neck at C6-C7. She is being treated for multiple sclerosis or she does have multiple sclerosis. She has a tremor associated with this condition. Notes that the weather change can be problematic. Today's temperature is 7 degrees above 0. Continues to have pain, which is problematic in the mid back as well as in her shoulders. Feels that SULFA is an allergy. CURRENT MEDICATIONS: Venlafaxine 150 mg, oxycodone 5 mg one p.o. t.i.d., Flexeril 10 mg t.i.d., multivitamin, Biaxin 1000 mcg, Citracal 500 mg, calcium 600 mg, probiotic, stool softener, docusate 100 mg 6 times daily, Zyrtec, cranberry 15,000 mg supplement. PAIN CLINIC ASSESSMENT/PQRS: 1. History of osteoarthritis involving the knees. The patient has some changes in her neck and had surgical fusion in the C6-C7 area. The patient is not being treated for rheumatoid arthritis. 2. Height 5 feet 7 inches, weight 220 pounds, BMI is 34.4. 3. Vital Signs: Blood pressure 107/77, heart rate 73, respiratory rate 16, room air saturation is 100%. Temperature 98%. 4. Pain score of 4/10. 5. Fall history: The patient has not fallen in the last 3 months. 6. Blood thinner. The patient is not on a blood thinning medication. 7. Hypertension. The patient has not been treated for hypertension. 8. Opioids greater than 6 weeks. The patient [facility]. 9. Risk assessment tool. 10. Functional assessment tool. 11. Recreational drug use. The patient [place] [address] PAIN MANAGEMENT CONSULTATION Name: ISABELLE VELOZ Room: [facility]#: [id number] Admission: 08/13/18 Attend Phys: Vahe Dowling MD Discharge: Date of : 58 Report #: [id number] 12. Tobacco: The patient denies use of tobacco. 13. Alcohol: The patient denies use of alcoholic beverages. PHYSICAL EXAMINATION: GENERAL: The patient is a well-developed, well-nourished white female. She appears her stated age. She is alert and oriented x 3. Her affect is appropriate. Speech is fluent. HEENT: Normocephalic, atraumatic. Extraocular eye muscles intact. Sclerae nonicteric. Mucous membranes are moist. NECK: Without adenopathy or JVD, has some limited movement in her neck, status post C6-C7 surgery. CARDIAC: Heart rate S1, S2. ABDOMEN: Nontender. Bowel sounds present. The patient has some mid back pain and discomfort. LUNGS: Clear to auscultation without rhonchi or rales. EXTREMITIES: Upper extremity muscle strength is judged to be 5-/5 for the major muscle groups in the upper extremity. The patient without significant scoliosis, kyphosis or lordosis. Lower extremity muscle strength is judged to be 5/5 for the major muscle groups in the lower extremity. ASSESSMENT: 1. Benign multiple sclerosis -- stable. 2. Fatty liver. 3. History of gastric bypass. 4. Back pain, chronic. 5. Left arm pain. 6. History of depression. 7. History of cervical radiculopathy, status post fusion C5/C6. RECOMMENDATIONS: We discussed treatment options with the patient. Risks and benefits of opioid medications were again discussed. Possible complications of their use could include addiction as well as development of tolerance. We explained to the patient that 75 p.o. daily. Diet from overdosing on medications. She feels that her medication is helpful. She has had a gastric bypass and is unable to take nonsteroidal anti-inflammatory medications. Has liver problems with elevated liver function and is unable to take Tylenol medication. She feels that she has been taking her oxycodone as prescribed. We reviewed the findings of the drug screen. Oxycodone findings were negative. Venlafaxine showed positive results. The patient states that she has been taking her medications. There is no diversion going on. She does recall not taking her medications, but there is possibility she may have used most of her medications prior to her last visit. We explained [place] [address] PAIN MANAGEMENT CONSULTATION Name: ISABELLE VELOZ Room: [facility]#: [id number] Admission: 08/13/18 Attend Phys: Vahe Dowling MD Discharge: Date of : 58 Report #: [id number] tested again in the future. We would like to thank you for letting us participate in her care. We hope she continues to improve. By: [id number]. Joe Dowling MD /PMT
== END ==
LOC: M.PC 05:11
DX: M17.0 Bilateral primary osteoarthritis of knee (principal); I10 Essential (primary) hypertension; F11.20 Opioid dependence, uncomplicated; Z91.81 History of falling

== ENCOUNTER → 2018-09-10 | Outpatient (CLI) | payer OTHER ==
--- NOTE | ~2018-09-10 | PAINCON ---
[address] [address] PAIN MANAGEMENT CONSULTATION Name: ISABELLE VELOZ Room: [facility] Mary Carmen#: [id number] Admission: 09/10/18 Attend Phys: Vahe Dowling MD Discharge: Date of : 58 Report #: [id number] THIS REPORT FOR: //name// CC: Anitha Dowling DATE OF SERVICE: 09/10/2018 CHIEF COMPLAINT: Cervical radicular pain, would like to undergo another injection and back, neck, and shoulder pain. HISTORY: The patient is a 57-year-old female, who has been followed in the pain clinic. As you may recall, she has pain in her neck, back, and shoulders because of osteoarthritic changes. She feels that her medications of oxycodone and Flexeril are helpful. She still continues to have pain, which has been problematic for a number of years. She states that because of her liver, she is unable to take nonsteroidal anti-inflammatory medications. She has had a fusion of her neck at C6-C7. She is being treated for multiple sclerosis. She feels overall that her status is stable. She has returned today for a renewal of her medications. She rates her pain as a 5/10. CURRENT MEDICATIONS: Venlafaxine 150 mg, oxycodone 5 mg one p.o. t.i.d., Flexeril 10 mg 1 p.o. t.i.d., multivitamin, Biaxin 1000 mcg, Citracal 500 mg, calcium 600 mg, probiotic, stool softener, docusate 100 mg 6 times daily, Zyrtec, and cranberry 15,000 mg supplement. ALLERGIES: THE PATIENT IS ALLERGIC TO SULFA. PAIN CLINIC ASSESSMENT AND PQRS: 1. Osteoarthritis involving the knees. The patient has some changes in her neck and has had cervical fusion at C6-C7. The patient has not been treated for rheumatoid arthritis. 2. Pain intensity is 5/10. 3. Fall history. The patient has not fallen in the last 3 months. 4. Blood thinner. The patient is not on a blood thinning medication. 5. Hypertension. The patient is not being treated for hypertension. 6. Opioids greater than 6 weeks. The patient receives her medication [facility]. 7. Risk assessment tool, low for opioid use. 8. Functional assessment tool. 9. Recreational drug use. The patient denies use of recreational drugs. 10. Tobacco: The patient denies use of tobacco. 11. Alcohol: The patient denies use of alcoholic beverages. PHYSICAL EXAMINATION: GENERAL: The patient is a well-developed, well-nourished, [place] [address] PAIN MANAGEMENT CONSULTATION Name: ISABELLE VELOZ Room: [facility]#: [id number] Admission: 09/10/18 Attend Phys: Vahe Dowling MD Discharge: Date of : 58 Report #: [id number] female. She appears her stated age. She is alert and oriented x 3. Her affect is appropriate. Speech is slow. Height is 5 feet 7 inches, weight is 220 pounds, and BMI is 34.4. VITAL SIGNS: Blood pressure is 121/77, heart rate is 84, respiratory rate is 16, room air saturation is 99%, and temperature is 98.3. HEENT: Normocephalic, atraumatic. Extraocular eye muscles intact. Sclerae nonicteric. Mucous membranes are moist. NECK: Without adenopathy, JVD, limited movement, range of motion. Status post C6-C7 surgical intervention. CARDIAC: Heart status stable. Heart rate is normal. S1, S2. ABDOMEN: Nontender. Bowel sounds present. The patient with some mid back pain, neck, and shoulder pain. EXTREMITIES: The patient is without significant scoliosis, kyphosis, or lordosis. Muscle strength in the upper extremity is judged to be 5-/5 for the major muscle groups and 5-/5 for the major groups in the lower extremity. ASSESSMENT: 1. Benign multiple sclerosis - stable. 2. Fatty liver. 3. History of gastric bypass. 4. Back pain, chronic. 5. Left arm pain. 6. History of depression. 7. Cervical radiculopathy, status post C5-C6 fusion. RECOMMENDATIONS: We have discussed treatment options with the patient. At this juncture, she feels her medications are working reasonably well. She would like to have the medications renewed. A script for her medications have been provided. She will continue with her medications as prescribed. Again, she does not take some medication secondary to her liver function tests, one includes Tylenol. The patient states that she continues to take her medication as prescribed. She will call us if she has any concerns. We would like to thank you for letting us to participate in her care. We hope she continues to improve. By: [id number]. Joe Dowling MD /BO
== END ==
LOC: M.PC 05:05
DX: M54.12 Radiculopathy, cervical region (principal); M43.22 Fusion of spine, cervical region; M54.5 Low back pain; G89.29 Other chronic pain; M79.602 Pain in left arm; G35 Multiple sclerosis; K76.0 Fatty (change of) liver, not elsewhere classified; F32.9 Major depressive disorder, single episode, unspecified; Z79.899 Other long term (current) drug therapy; Z98.84 Bariatric surgery status

== ENCOUNTER → 2018-10-08 | Outpatient (CLI) | payer OTHER ==
--- NOTE | ~2018-10-08 | PAINCON ---
[address] [address] PAIN MANAGEMENT CONSULTATION Name: ISABELLE VELOZ Room: [facility] Mary Carmen#: [id number] Admission: 10/08/18 Attend Phys: Vahe Dowling MD Discharge: Date of : 58 Report #: [id number] THIS REPORT FOR: //name// CC: Anitha Dowling DATE OF SERVICE: 10/08/2018 CHIEF COMPLAINT: Here for medication renewal. HISTORY: The patient is a 57-year-old female. She has a history of cervical pain and has undergone cervical epidural steroid injections in the past. She continues to have pain and discomfort in her back, neck, and in her shoulders. She has been decreasing her weight. She has lost 5 pounds. She is more active. She has a new puppy. Overall, things are going reasonably well. As you recall, she suffers from multiple sclerosis. At this juncture, it appears to be somewhat stable. She moved here from [place]. She rates her pain as a 3/10 at this point. Feels that the oxycodone is beneficial. Has returned today with a desire to undergo a renewal of this medication. CURRENT MEDICATIONS: Venlafaxine 150 mg, oxycodone 5 mg one p.o. t.i.d., Flexeril 10 mg 1 p.o. t.i.d., multivitamins, Biaxin 1000 mcg, Citracal 500 mg, calcium 600 mg, probiotic, stool softener, docusate 100 mg 6 times daily, Zyrtec, cranberry 15,000 mg supplement. ALLERGIES: THE PATIENT IS ALLERGIC TO SULFA. PAIN CLINIC ASSESSMENT/PQRS: 1. The patient has osteoarthritis involving her knees. She has had some changes in her neck and has had a cervical fusion at C6-C7. The patient has not been treated for rheumatoid arthritis. 2. Height 5 feet 7 inches, weight 215 pounds, BMI 33. 3. Vital signs: Blood pressure 103/77, heart rate 81, respiratory rate 16, room air saturation 99%, temperature 98.3. 4. Pain intensity 09/20. 5. Fall history: The patient has not fallen in the last 3 months. 6. Blood thinner. The patient is not on a blood thinning medication. 7. Hypertension. The patient is not being treated for hypertension. 8. Opioid greater than 6 weeks. The patient receives her medications from [facility]. 9. Risk assessment tool, low for opioid use. 10. Functional assessment tool. 11. Recreational drug use. The patient denies use of recreational drugs. 12. Tobacco: The patient denies use of tobacco. 13. Alcohol: The patient [place] [address] PAIN MANAGEMENT CONSULTATION Name: ISABELLE VELOZ Room: [facility]#: [id number] Admission: 10/08/18 Attend Phys: Vahe Dowling MD Discharge: Date of : 58 Report #: [id number] PHYSICAL EXAMINATION: GENERAL: The patient is a well-developed, well-nourished white female. Appears her stated age. She is alert and oriented x 3. Affect is appropriate. Speech is fluent. HEENT: Normocephalic, atraumatic. Extraocular eye muscles intact. Sclerae nonicteric. Mucous membranes are moist. NECK: Without adenopathy or JVD. Good range of motion. Does have pain and discomfort in the cervical area involving the C6-C7 areas. HEART: Regular rate. S1, S2. ABDOMEN: Nontender. Bowel sounds present. LUNGS: Clear to auscultation. EXTREMITIES: The patient without significant scoliosis, kyphosis, or lordosis. Muscle strength in the upper extremity is judged to be 5-/5 for the major muscle groups in the upper extremity and 5-/5 for the major muscle groups in the lower extremity. ASSESSMENT: 1. Benign multiple sclerosis, stable. 2. Fatty liver. 3. History of gastric bypass. 4. Back pain, chronic. 5. Left arm pain. 6. History of depression. 7. Cervical radiculopathy, status post C5-C6 fusion. RECOMMENDATIONS: We discussed treatment option with the patient. We will continue with her medications. She feels that they are working reasonably well. She has noted some increased discomfort secondary to the attention provided by her puppy. Notes that they are quite active. Lots of bending, twisting, and have somewhat increased her discomfort. She continues to be more active and has lost 5 pounds. A script for oxycodone 5 mg p.o. t.i.d. have been written. We would like to thank you for letting us participate in her care. We hope she continues to improve. By: [id number]. Joe Dowling MD /BO
== END ==
LOC: M.PC 00:37
DX: M54.12 Radiculopathy, cervical region (principal); K76.0 Fatty (change of) liver, not elsewhere classified; M43.22 Fusion of spine, cervical region; Z98.890 Other specified postprocedural states; Z79.891 Long term (current) use of opiate analgesic; Z79.899 Other long term (current) drug therapy; Z88.2 Allergy status to sulfonamides

== ENCOUNTER → 2018-11-05 | Outpatient (CLI) | payer OTHER | LOC: M.RAD 12:55 | DX: Z12.31 Encounter for screening mammogram for malignant neoplasm of breast (principal) ==

== ENCOUNTER → 2018-11-05 | Outpatient (CLI) | payer OTHER ==
--- NOTE | ~2018-11-05 | PAINCON ---
[address] [address] PAIN MANAGEMENT CONSULTATION Name: ISABELLE VELOZ [id number] Admission: 11/05/18 Attend Phys: Vahe Dowling MD Discharge: Date of : 58 Report #: [id number] THIS REPORT FOR: //name// CC: Anitha Dowling DATE OF SERVICE: 11/05/2018 CHIEF COMPLAINT: Neck, back and shoulder pain. HISTORY: The patient is a 57-year-old female who has been followed in the pain clinic because of chronic pain involving her cervical area. She has been having pain and discomfort in the back, neck and shoulders. This has been ongoing for a number of years. She has found that oxycodone continues to be helpful with her pain and discomfort. As you may recall, she suffers from multiple sclerosis. At this juncture, things are stable. She move back to [place] from [facility]. She is [employer] of [place]. Rates her pain today as a 3/10. Feels that her medications are beneficial. She is working to lose weight. She has lost 4 pounds. She is using a low carb diet. ALLERGIES: SULFA. CURRENT MEDICATIONS: Venlafaxine 150 mg, oxycodone 5 mg one p.o. t.i.d., Flexeril 10 mg 1 p.o. t.i.d., multivitamin, BIAXIN 1000 mcg, Citracal 500 mg, calcium 600 mg, Probiotic, stool softener, docusate 100 mg 6 times daily, Zyrtec, Cranberry 15,000 mg supplement. PAIN CLINIC ASSESSMENT/PQRS: 1. The patient is experiencing osteoarthritic changes involving her knees. She has had some change in her neck and has had a cervical fusion at C6-C7. The patient is not being treated for rheumatoid arthritis. 2. Height 5 feet 7 inches, weight 211 pounds, BMI is 33.1. 3. Vital signs: Blood pressure 125/67, heart rate 80, respiratory rate 16, room air saturation 99%, temperature 98.1. 4. Pain intensity is 3/10. 5. Fall risk. The patient has not fallen in the last 3 months. 6. Blood thinner. The patient is not on a blood thinning medication. 7. Hypertension. The patient is not being treated for hypertension. 8. Opioids greater than 6 weeks. The patient is receiving her [facility]. 9. Risk assessment tool of her opioid use. 10. Functional assessment tool. 11. Recreational drug use. The patient denies use of recreational drugs. 12. Tobacco: The patient denies use of tobacco. 13. Alcohol: The patient denies [place] [address] PAIN MANAGEMENT CONSULTATION Name: ISABELLE VELOZ Room: [facility]#: [id number] Admission: 11/05/18 Attend Phys: Vahe Dowling MD Discharge: Date of : 58 Report #: [id number] PHYSICAL EXAMINATION: GENERAL: The patient is a well-developed, well-nourished white female. Appears her stated age. She is alert and oriented x 3. Affect is appropriate. Speech is fluent. HEAD, EYES, EARS, NOSE, AND THROAT: Normocephalic, atraumatic. Extraocular muscles intact. Sclerae is nonicteric. The patient is wearing glasses. NECK: Without adenopathy or JVD. A well-healed area in the cervical C6-C7 areas. HEART: Regular rate. S1, S2. ABDOMEN: Nontender. Bowel sounds present. LUNGS: Clear to auscultation upper extremity muscle strength is judged to be 5-5/5 for the major muscle groups in the upper extremity. Muscle strength to the lower extremity 5/5. The patient is without significant scoliosis, kyphosis or lordosis. ASSESSMENT: 1. Benign multiple sclerosis, stable. 2. Fatty liver. 3. History of gastric bypass. 4. Back pain, chronic. 5. Left arm pain. 6. History of depression. 7. Cervical radiculopathy, status post C5/C6 fusion. RECOMMENDATIONS: We discussed treatment options with the patient. At this juncture, she will continue with her medications. Keeps her medications in a guarded area. Feels the medication is beneficial. Not having any untoward side effects. A script for her medication of oxycodone 5 mg 1 p.o. t.i.d. have been reissued. We would like to thank you for letting us to participate in her care. We hope she continues to improve. She overall feels that things are 50-70% improved with her current regimen. By: [id number]. Joe Dowling MD /[facility]
== END ==
LOC: M.PC 04:34
DX: G89.29 Other chronic pain (principal); M54.89 Other dorsalgia; G35 Multiple sclerosis; K76.0 Fatty (change of) liver, not elsewhere classified; M54.12 Radiculopathy, cervical region; Z98.890 Other specified postprocedural states; Z88.2 Allergy status to sulfonamides; Z79.899 Other long term (current) drug therapy; Z79.891 Long term (current) use of opiate analgesic; Z98.84 Bariatric surgery status

== ENCOUNTER → 2018-12-03 | Outpatient (CLI) | payer OTHER ==
--- NOTE | ~2018-12-03 | PAINCON ---
[address] [address] PAIN MANAGEMENT CONSULTATION Name: ISABELLE VELOZ Room: [facility].#: [id number] Admission: 12/03/18 Attend Phys: Vahe Dowling MD Discharge: Date of : 58 Report #: [id number] THIS REPORT FOR: //name// CC: Anitha Dowling DATE OF SERVICE: 12/03/2018 CHIEF COMPLAINT: "Here for medication, I am going to take by mother to the graveyard to place burrell on my father's grave." HISTORY: The patient is a 58-year-old female who has been followed in the Pain Clinic. She has pain, which is chronic. It involves her shoulders, back, and neck. She continues to have pain, which is problematic. As you recall, she did have some injections in her left shoulder. She has also had some stem cell injection in her right knee. She feels that her medications of oxycodone are helpful. She also suffers from multiple sclerosis. At this point, it has continued to be stable. As you recall, she moved back to [place] from [place]. She continues to monitor her mother's care. Her mother is in a longterm under hospice. Her mother's kidneys are failing. This is the Memorial Holiday. She is going to take her mother to the grave site to decorate her father's grave. She feels overall that things are going reasonably well. The weather has been very rainy and quite dynamic. Abel has touched down in [place]. Overall, things are going reasonably well and she would like to continue with her medications. ALLERGIES: SULFA. CURRENT MEDICATIONS: Venlafaxine 150 mg, oxycodone 5 mg 1 p.o. t.i.d., Flexeril 10 mg t.i.d., multivitamin, Biaxin 1000 mcg, Citracal 500 mg, calcium 600 mg, probiotics, stool softener, docusate 100 mg 6 times daily, Zyrtec, cranberry 22741 mg supplementation. PAIN CLINIC ASSESSMENT AND PQRS: 1. The patient is experiencing osteoarthritic changes involving her knees. She has had her stem cell injection on the right. She has left shoulder pain. She has spine pain as a result of C7-C6 fusion. 2. Height 5 feet 7 inches, weight 211 pounds, BMI is 33.2. 3. Blood pressure 119/90, heart rate 82, respiratory rate 16, room air saturation 99%, temperature 98.2. 4. Pain intensity: 4/10. 5. Fall history: The patient has not fallen in the last 3 months. 6. Blood thinner: The patient is not on a blood thinning medication. 7. Hypertension: The patient is not being treated for hypertension. 8. Opioids: The patient receives the medication from one [place] [address] PAIN MANAGEMENT CONSULTATION Name: ISABELLE VELOZ Room: [facility]#: [id number] Admission: 12/03/18 Attend Phys: Vahe Dowling MD Discharge: Date of : 58 Report #: [id number] 9. Risk assessment tool: Low for opioid use. 10. Functional assessment tool. 11. Recreational drug use: The patient denies. 12. Tobacco: The patient denies. 13. Alcohol: The patient denies use of alcoholic beverages. PHYSICAL EXAMINATION: GENERAL: The patient is a well-developed, well-nourished, white female. She appears her stated age. She is alert and oriented x 3. Her affect is appropriate. Speech is fluent. HEENT: Normocephalic, atraumatic. Extraocular eye muscles intact. Sclerae nonicteric. Mucous membranes are moist. NECK: Without adenopathy or JVD. Some limitation in movement since her surgery. She is not complaining of pain or discomfort radiating down to her arms today. HEART: Regular rate, S1 and S2. ABDOMEN: Nontender. Bowel sounds present. LUNGS: Clear to auscultation without rhonchi or rales. MUSCULOSKELETAL: Upper extremity muscle strength is generally 5-/5 for the major muscle groups in the upper extremity. The patient is without scoliosis, kyphosis or lordosis. Lower extremity muscle strength is judged to be 5-/5 for the major muscle groups in the lower extremity. ASSESSMENT: 1. Benign multiple sclerosis, stable. 2. Fatty liver. 3. History of gastric bypass. 4. History of back pain, chronic. 5. Left arm pain. 6. History of depression. 7. Cervical radiculopathy, status post C5-C6 fusion. RECOMMENDATIONS: We discussed treatment options with the patient. At this juncture, she feels her medications are working reasonably well. She is having no complications. She is aware of that opioid medications can be problematic snf. Patients can have less benefits because of development of tolerance, also patients can develop addiction. Overall, she feels that things are going reasonably well. She keeps her medications in a guarded area. She feels that the medications continue to enable her to have a good quality of life. She notes that because of the weather, sitting activity, lifting, and bending have been more problems. She continues to stay active. She is going to go pharmacy picking technician her mother today to place burrell on her father's grave. She feels that things are okay. She will call us if [place] [address] PAIN MANAGEMENT CONSULTATION Name: ISABELLE VELOZ KIRBY Room: [facility]#: [id number] Admission: 12/03/18 Attend Phys: Vahe Dowling MD Discharge: Date of : 58 Report #: [id number] We would like to thank you for letting us participate in her care. A script for oxycodone 5 mg 1 p.o. t.i.d. has been written. By: [id number]. Joe Dowling MD /nt
== END ==
LOC: M.PC 02:28
DX: G89.29 Other chronic pain (principal); M54.12 Radiculopathy, cervical region; G35 Multiple sclerosis; F32.9 Major depressive disorder, single episode, unspecified; Z88.2 Allergy status to sulfonamides; Z79.899 Other long term (current) drug therapy; Z79.891 Long term (current) use of opiate analgesic

== ENCOUNTER → 2019-01-05 | Outpatient (CLI) | payer OTHER ==
--- NOTE | ~2019-01-05 | PAINCON ---
[address] [address] PAIN MANAGEMENT CONSULTATION Name: ISABELLE VELOZ Room: [facility].#: [id number] Admission: 01/05/19 Attend Phys: Vahe Dowling MD Discharge: Date of : 58 Report #: [id number] THIS REPORT FOR: //name// CC: Anitha Dowling DATE OF SERVICE: 01/05/2019 CHIEF COMPLAINT: "The pain is pretty good, but my has a blood clot in his heart and my mother is dying from kidney failure." HISTORY OF PRESENT ILLNESS: The patient is a 58-year-old female who has been followed in the Pain Clinic because of chronic pain. She has cervical radicular pain and discomfort. Also, has some pain in her neck and shoulders. This has been going on for a number of years. She continues to find that oxycodone is helpful. She suffers from multiple sclerosis. At this juncture, things are continuing to remain stable. She and her moved here from [place]. She is a [place] of [place]. She has been having some family problems. Her mother is dying of renal failure. She is confused at this point. Notes that some of the toxins from the kidney dysfunction are causing her to be confused. She also has some problem with her . He has a history of chronic atrial fibrillation. He is only taking an aspirin in the past. He recently followed up with his primary physician in [place], [place]. He was found to be in atrial fibrillation about 95% of the time. Does have a clot in his left atrium. He is being anticoagulated for that at this juncture. She feels that her life is quite stressful at this point because of those two life challenges. She rates her pain as about 70% improved with her current medical use. Notes that walking, standing, bending, and lifting can be problematic. She has returned today for renewal of her medications. She does not have any problems with the medications. ALLERGIES: SULFA. CURRENT MEDICATIONS: Venlafaxine 150 mg, oxycodone 5 mg 1 p.o. t.i.d., Flexeril 10 mg 1 p.o. t.i.d., multivitamin, Biaxin 1000 mcg, Citracal C 500 mg, calcium 600 mg, probiotic, stool softener, docusate 100 mg 6 times daily, Zyrtec, cranberry 15,000 mg supplement. PAIN CLINIC ASSESSMENT/PQRS: 1. The patient does have some osteoarthritic changes in her knees. She has some pain and discomfort in her neck as well as had a first cervical fusion at C6-C7. The patient is not being treated for rheumatoid arthritis. 2. Height 5 feet 7 inches, weight is 207 pounds, BMI is 33.4. 3. Vital Signs: Blood pressure 128/72, heart rate 85, respiratory rate 16, room air saturation 98%, temperature 97.7. 4. Pain intensity 3/10. [place] [address] PAIN MANAGEMENT CONSULTATION Name: ISABELLE VELOZ Room: [facility]#: [id number] Admission: 01/05/19 Attend Phys: Vahe Dowling MD Discharge: Date of : 58 Report #: [id number] 5. Fall history: The patient has not fallen in the last 3 months. 6. Blood thinner. The patient is not on a blood thinning medication. 7. Hypertension. The patient is not being treated for hypertension. 8. Opioid greater than 6 weeks. The patient receives her medications from one source, the pain clinic. 9. Risk assessment tool, low for opioid use. 10. Functional assessment tool. 11. Recreational drug use. The patient denies use of recreational drugs. 12. Alcohol: The patient denies use of alcoholic beverages. 13. Tobacco: The patient denies use of tobacco. PHYSICAL EXAMINATION: GENERAL: The patient is a well-developed, well-nourished white female. Appears her stated age. She is alert and oriented x 3. Her affect is appropriate. Speech is slow. HEENT: Normocephalic, atraumatic. Extraocular eye muscles intact. Sclerae nonicteric. Mucous membranes are moist. The patient is wearing glasses. NECK: Without adenopathy or JVD. The patient has a well-healed scar in the anterior portion at the C6-C7 area. HEART: Regular rate. S1, S2. ABDOMEN: Nontender. Bowel sounds present. LUNGS: Clear to auscultation without rhonchi or rales. EXTREMITIES: Upper extremity muscle strength is judged to be 5-/5 for the major muscle groups in the upper extremity. Lower extremity 5/5. IMPRESSION: 1. The patient without significant scoliosis, kyphosis or lordosis. 2. Benign multiple sclerosis, stable. 3. Fatty liver. 4. History of gastric bypass. 5. Back pain, chronic. 6. Left arm pain. 7. History of depression. 8. Cervical radicular pain status post C5-C6 fusion. 9. Family problems with her with development with a history of atrial fibrillation, chronic 95% of the time now with a clot in the atrium being anticoagulated. 10. Mother dying and in hospice as a result of kidney failure. RECOMMENDATIONS: We discussed treatment options with the patient. We will continue with the opioid use. The patient is finding that the medication continues to be helpful. She does not have any problems with withdrawal. She is aware that these medications will be helpful. They will not totally alleviate her pain. She is aware of this. Feels that the medication is helpful and would like to continue. A script for oxycodone has been rewritten. She will continue with 5 mg 1 p.o. q. 8 hours, a total of 90 [place] [address] PAIN MANAGEMENT CONSULTATION Name: ISABELLE VELOZ Room: [facility]#: [id number] Admission: 01/05/19 Attend Phys: Vahe Dowling MD Discharge: Date of : 58 Report #: [id number] dispensed. She will call us if she has any concerns. We would like to thank you for letting us participate in her care. We will continue with her complex medical management for chronic pain. By: [id number]. Joe Dowling MD /nt
== END ==
LOC: M.PC 05:42
DX: M43.22 Fusion of spine, cervical region (principal); M79.602 Pain in left arm; G89.29 Other chronic pain; M54.5 Low back pain; G35 Multiple sclerosis; K76.0 Fatty (change of) liver, not elsewhere classified

== ENCOUNTER → 2019-02-02 | Outpatient (CLI) | payer OTHER ==
--- NOTE | ~2019-02-02 | PAINCON ---
[address] [address] PAIN MANAGEMENT CONSULTATION Name: ISABELLE VELOZ Room: [facility].#: [id number] Admission: 02/02/19 Attend Phys: Vahe Dowling MD Discharge: Date of : 58 Report #: [id number] THIS REPORT FOR: //name// CC: Anitha Dowling DATE OF SERVICE: 02/02/2019 CHIEF COMPLAINT: "My pain is pretty good. My mother is still in kidney failure and my 's clot in his heart is resolved. HISTORY: The patient is a 58-year-old female who has been followed in the pain clinic. As you recall, she suffers from cervical radicular pain. Has pain in her neck and shoulders. She has noticed improvement with oxycodone. She takes this medication and finds that this is beneficial. She suffers from multiple sclerosis. Things are stable at this point. As you recall, she moved to [place] from [place]. She is a [place] of [place]. She is watching over her mother. Her mother is in kidney failure. Because of the toxicities of renal failure, her mother is unable to think clearly. She is in an assisted living facility. She goes to feed her mother 3 times daily. This has been quite a bit of stress on her. Her mother has had seizures. This is a result of her kidney failure as well. She has good days and bad days. Patient's has atrial fibrillation. The clots in his heart have resolved. He has been cardioverted. She states that he did go in to sinus rhythm, but may have returned to atrial fibrillation. He is in the process of having this checked out. Overall, she feels that her medications are helpful. Rates her pain as a 3/10. She has been treated for chronic urinary tract infections. She was on an antibiotic. She has stopped taking the antibiotic with the thought that it may be causing hives. ALLERGIES: SULFA. CURRENT MEDICATIONS: Venlafaxine 150 mg, oxycodone 5 mg 1 p.o. t.i.d., Flexeril 10 mg 1 p.o. t.i.d., multivitamins, Biaxin 1000 mcg, Citracal C-500 mg, calcium 600 mg, probiotic, stool softener -- docusate 100 mg 6 times daily, Zyrtec, cranberry 15,000 mg supplement. PAIN CLINIC ASSESSMENT/PQRS: 1. The patient does have some osteoarthritic changes in her knees. She has pain in her neck as well as her first cervical has been fused. She has pain in her neck. Has had fusion at C6-C7. The patient is not being treated for rheumatoid arthritis. 2. Height 5 feet 7 inches, weight 207 pounds, BMI is 32. 3. VITAL SIGNS: Blood pressure 115/75, heart rate 84, respiratory rate 16, room air saturation 99%, temperature 98.0[place] [address] PAIN MANAGEMENT CONSULTATION Name: MAGDIEL,ISABELLE JO [id number] Admission: 02/02/19 Attend Phys: Vahe Dowling MD Discharge: Date of : 58 Report #: [id number] 4. Pain intensity 09/20. 5. Fall history: The patient has not fallen in the last 3 months. 6. Blood thinner. The patient is not on a blood thinning medication. 7. Hypertension. The patient is not being treated for hypertension. 8. Opioids greater than 6 weeks. The patient receives her medication from one source, the pain clinic. 9. Risk assessment tool, low for opioid use. 10. Functional assessment tool. 11. Recreational drug use. The patient denies use of recreational drugs. 12. Alcohol: The patient denies use of alcoholic beverages. 13. Tobacco: The patient denies use of tobacco. PHYSICAL EXAMINATION: GENERAL: The patient is a well-developed, well-nourished white female. Appears her stated age. She is alert and oriented x 3. Her affect is appropriate. Speech is fluent. HEENT: Normocephalic, atraumatic. Extraocular eye muscles intact. Sclerae nonicteric. Mucous membranes are moist. The patient is wearing glasses. NECK: Without adenopathy or JVD. Well-healed scar in the anterior portion of C6-C7. HEART: Regular rate, S1. ABDOMEN: Nontender. LUNGS: Clear to auscultation without rhonchi or rales. EXTREMITIES: Upper extremity muscle strength judged to be 5-/5 for the major muscle groups in the upper extremity. Lower extremities strength is 5/5. IMPRESSION: 1. The patient is without significant scoliosis, kyphosis or lordosis. Benign multiple sclerosis, stable. 2. Fatty liver. 3. History of gastric bypass. 4. Back pain, chronic. 5. Left arm pain. 6. History of depression. 7. Cervical radicular pain status post C5-C6 fusion. 8. Family problems with her , development of atrial fibrillation -- which has resolved, has undergone cardioversion. 9. Mother in hospice with kidney failure -- some confusion. RECOMMENDATIONS: We discussed treatment options with the patient. At this juncture, we will continue with her medication. She feels that the oxycodone is helpful. She has not had any complications with it. She is aware that opioid medications can be problematic. She is aware that last year about 70,000 people as a result of medication overdose. She is taking her medication as prescribed. Keeps her medications in a guarded area. Feels that this medication is beneficial and enables her to keep up [place] [address] PAIN MANAGEMENT CONSULTATION Name: ISABELLE VELOZ KIRBY Room: [facility]#: [id number] Admission: 02/02/19 Attend Phys: Vahe Dowling MD Discharge: Date of : 58 Report #: [id number] does feel stressed and overwhelmed, given that she has to be available to help feed her mother's 3 times a day. She is trying to get more help from family members. We will continue with her medication. A script for oxycodone 5 mg 1 p.o. t.i.d. has been written. The patient will call us if she has any concerns. We would like to thank you for letting us participate in her care. By: [id number]. Joe Dowling MD /nt
== END ==
LOC: M.PC 05:22
DX: M54.12 Radiculopathy, cervical region (principal); M25.511 Pain in right shoulder; M25.512 Pain in left shoulder; M19.90 Unspecified osteoarthritis, unspecified site; K76.0 Fatty (change of) liver, not elsewhere classified; F32.9 Major depressive disorder, single episode, unspecified; Z88.2 Allergy status to sulfonamides; Z79.899 Other long term (current) drug therapy; Z79.891 Long term (current) use of opiate analgesic

== ENCOUNTER → 2019-03-02 | Outpatient (CLI) | payer OTHER ==
--- NOTE | ~2019-03-02 | PAINCON ---
[address] [address] PAIN MANAGEMENT CONSULTATION Name: ISABELLE VELOZ Room: [facility]#: [id number] Admission: 03/02/19 Attend Phys: Vahe Dowling MD Discharge: Date of : 58 Report #: [id number] THIS REPORT FOR: //name// CC: Anitha Dowling DATE OF SERVICE: 03/02/2019 CHIEF COMPLAINT: Here for medications renewal. HISTORY: The patient is a 58-year-old female who has been followed in the pain clinic because of chronic pain associated with history of multiple sclerosis. She suffers from pain in the cervical area. It involves her shoulders. She has had a reasonably stable course. She moved back to [place]. Her mother had been suffering from kidney failure. She was on hospice. She has in the last week. This has been traumatic for her. Her has history of atrial fibrillation. He was cardioverted. It lasted for about a week. He is now being evaluated for an additional procedure to help decrease the atrial fibrillation. She has other stressors. She has a history of chronic urinary tract infection. She is going to see a urologist. She has been told that she could have a number of things, one of which could be a cancer in her bladder. ALLERGIES: SULFA. CURRENT MEDICATIONS: Venlafaxine 150 mg, oxycodone 5 mg 1 p.o. t.i.d., Flexeril 10 mg 1 p.o. t.i.d., multivitamins, Biaxin 1000 mcg, Citracal ____, calcium 600 mg, probiotic, stool softener, docusate 100 mg 6 times daily, Zyrtec, and cranberry juice 15,000 mg supplement. PAIN CLINIC ASSESSMENT AND PQRS: 1. The patient does have some osteoarthritic changes in her knees. The pain in her neck as well as the first cervical area has been fused. She has pain and fusion of the C6-C7 area. The patient is not being treated for rheumatoid arthritis. 2. Height 5 feet 7 inches, weight 206 pounds, BMI 32.5. 3. Vital signs: Blood pressure 126/87, heart rate 95, respiratory rate 16, room air saturation 95%. 4. Temperature 98.3. 5. Pain intensity 2-3/10. 6. Fall history: The patient has not fallen in the last 3 months. 7. Blood thinner. The patient is not on a blood thinning medication. 8. Hypertension. The patient is not being treated for hypertension. 9. Opioids greater than 6 weeks. The patient received medication from one source, pain clinic. 10. Risk assessment tool, low for opioid use. 11. Recreational [place] [address] PAIN MANAGEMENT CONSULTATION Name: MAGDIELISABELLE JO Room: [facility]#: [id number] Admission: 03/02/19 Attend Phys: Vahe Dowling MD Discharge: Date of : 58 Report #: [id number] 12. Tobacco: The patient denies. 13. Alcohol. The patient denies use of alcoholic beverages. PHYSICAL EXAMINATION: GENERAL: The patient is a well-developed, well-nourished white female. Appears her stated age. She is alert and oriented x 3. Her affect is appropriate. Speech is fluent. HEENT: Normocephalic, atraumatic. Extraocular eye muscles intact. Sclerae nonicteric. Mucous membranes are moist. NECK: Without adenopathy or JVD. The patient has well-healed scar in the anterior portion of her neck at C6-C7. HEART: Regular rate. ABDOMEN: Nontender. LUNGS: Clear to auscultation without rhonchi or rales. MUSCULOSKELETAL: Upper extremity muscle strength is judged to be 5-/5 for the major muscle groups in the upper extremity and lower extremities is 5/5. IMPRESSION: 1. The patient without significant scoliosis, kyphosis, or lordosis. 2. Fatty liver. 3. History of gastric bypass. 4. Back pain, chronic. 5. Left arm pain. 6. Chronic urinary tract infection. 7. History of depression. 8. Cervical radiculopathy, status post C5-C6 fusion. 9. Family matters, with recurrence of atrial fibrillation. 10. Mother last week. 11. The patient with chronic urinary tract infection and possibility of bladder cancer, being followed by this. RECOMMENDATIONS: We discussed treatment options with the patient. At this juncture, she feels that her ____ is full. We will continue with her medications. A script for oxycodone 5 mg 1 p.o. t.i.d. has been written. She will call us if she has any concerns. We would like to thank you for letting us participate in her care. By: [id number]. Joe Dowling MD /esther
== END ==
LOC: M.PC 05:09
DX: M54.12 Radiculopathy, cervical region (principal); M43.22 Fusion of spine, cervical region; K76.0 Fatty (change of) liver, not elsewhere classified; M54.9 Dorsalgia, unspecified; F32.9 Major depressive disorder, single episode, unspecified; N39.0 Urinary tract infection, site not specified; Z79.899 Other long term (current) drug therapy; Z88.2 Allergy status to sulfonamides

== ENCOUNTER → 2019-04-01 | Outpatient (CLI) | payer OTHER ==
--- NOTE | 2019-04-05 09:16 | PAINCON ---
[address] [address] PAIN MANAGEMENT CONSULTATION Name: ISABELLE VELOZ Room: [facility]#: [id number] Admission: 04/01/19 Attend Phys: Vahe Dowling MD Discharge: Date of : 58 Report #: [id number] THIS REPORT FOR: //name// CC: Anitha Dowling DATE OF SERVICE: 04/01/2019 CHIEF COMPLAINT: Here for medications and things are going okay since my mother . HISTORY: The patient is a 58-year-old female who has been followed in the pain clinic. As you recall, she has a long history of multiple sclerosis. It is reasonably stable at this point. She continues to have some pain in the cervical area. Has pain in her back and shoulders. Does have some mid pain and pain in the middle of her back near her bra line. She has been recovering from her mother's illness and . Her mother recently. She was on hospice. Her has a medical condition at this juncture. He has a chronic atrial fibrillation. He has seen a physiotherapy practice manager at . Possibility of a cardioversion/ablation have been discussed. He seems to be recalcitrant to cardioversions. He generally has a good health. This has been somewhat of a stressor on the patient as well. Other than that, she has no new complaints. She feels her oxycodone is helpful. She has returned today for renewal of her medications. ALLERGIES: SULFA. CURRENT MEDICATIONS: Venlafaxine 150 mg, oxycodone 5 mg 1 p.o. t.i.d., Flexeril 10 mg t.i.d., multivitamins, Biaxin 1000 mcg, Caltrate 600 mg, probiotic, stool softener, docusate 6 times daily, Zyrtec and cranberry juice 15,000 mg supplement. PAIN CLINIC ASSESSMENT/PQRS: 1. The patient does have some osteoarthritic changes in her knees. She has some changes in her neck as well as a history of first cervical area has been fused. She has pain in the C6-C7 area. The patient is not being treated for rheumatoid arthritis. 2. Height 5 feet 7 inches, weight 202 pounds, BMI is 31.7. 3. Vital signs: Blood pressure 107/65, heart rate 87, respiratory rate 18, room air saturation 98%. 4. Temperature 98.2. 5. Pain intensity 3/10. 6. Fall history: The patient has not fallen in the last 3 months. 7. Blood thinner. The patient is not on a blood thinning medication. 8. Hypertension. The patient is not being treated for hypertension. 9. Opioids greater than 6 weeks. The patient [place] [address] PAIN MANAGEMENT CONSULTATION Name: MAGDIELISABELLE KIRBY Room: [facility]#: [id number] Admission: 04/01/19 Attend Phys: Vahe Dowling MD Discharge: Date of : 58 Report #: [id number] source the pain clinic. 10. Risk assessment tool, low for opioid use. 11. Recreational drug use. The patient denies. 12. Tobacco: The patient denies use of tobacco. 13. Alcohol. The patient denies use of alcoholic beverages. PHYSICAL EXAMINATION: GENERAL: The patient is a well-developed, well-nourished white female. Appears her stated age. She is alert and oriented x 3. Her affect is appropriate. Speech is fluent. HEENT: Normocephalic, atraumatic. Extraocular eye muscles intact. The patient is wearing glasses. She is unaccompanied. NECK: Without adenopathy or JVD. Well-healed scar in the anterior portion of her neck, status post C6-C7 surgery. HEART: Regular rate. ABDOMEN: Nontender. LUNGS: Clear to auscultation without rhonchi or rales. MUSCULOSKELETAL: Strength judged to be 5-/5 for the major muscle groups in the upper extremity and 5/5 for the major muscle groups in the lower extremity. IMPRESSION: 1. Fatty liver. 2. History of gastric bypass. 3. Back pain, chronic. 4. Left arm pain. 5. Chronic urinary tract infection. 6. History of depression. 7. Cervical radiculopathy, status post C5-C6 fusion. 8. Family matters with continued atrial fibrillation. Mother recently. 9. Chronic history of urinary tract infection. Possible bladder cancer is being followed. RECOMMENDATIONS: We discussed treatment options with the patient. At this juncture, she feels that the oxycodone is helpful. She has taken the medication as prescribed. She is not having any problems with it. She is aware that opioid medications can be problematic for some people. She is not having any evidence of addiction. She is aware that opioid medications over a long-term may become less effective due to development of tolerance. A script for her medications of Roxicodone 5 mg 1 p.o. t.i.d. have been rewritten. She will call us if she has any concerns. [address] [address] PAIN MANAGEMENT CONSULTATION Name: ISABELLE VELOZ Room: [facility]#: [id number] Admission: 04/01/19 Attend Phys: Vahe Dowling MD Discharge: Date of : 58 Report #: [id number] We would like to thank you for letting us participate in her care. We hope she continues to improve. <ELECTRONICALLY SIGNED> By: Vahe Dowling MD 04/05/19 0916 0904 [id number]. Joe Dowling MD /nt
== END ==
LOC: M.PC 03-30 09:10
DX: K76.0 Fatty (change of) liver, not elsewhere classified (principal); F32.9 Major depressive disorder, single episode, unspecified; M54.12 Radiculopathy, cervical region; G89.29 Other chronic pain; M54.5 Low back pain; N39.0 Urinary tract infection, site not specified; Z88.2 Allergy status to sulfonamides; Z79.899 Other long term (current) drug therapy

== ENCOUNTER → 2019-04-22 | Outpatient (CLI) | payer OTHER ==
--- NOTE | 2019-05-05 09:09 | PAINCON ---
[facility] [address] [place] [address] PAIN MANAGEMENT CONSULTATION Name: ISABELLE VELOZ Room: [facility].#: [id number] Admission: 04/22/19 Attend Phys: Vahe Dowling MD Discharge: Date of : 58 Report #: [id number] THIS REPORT FOR: //name// CC: Anitha Dowling DATE OF SERVICE: 04/22/2019 CHIEF COMPLAINT: Here for renewal of medications and I am having some pain in my shoulder and upper back. HISTORY: The patient is a 58-year-old female who has been followed in the pain clinic because of chronic pain. As you may recall, she suffers from multiple sclerosis. She has a long history of this problem. She continues to have pain in the cervical areas and pain involving her shoulders. Has some pain in the middle of her back. She feels that her medications continue to keep her pain tolerable. She feels that her pain is about 50% improved with use of these medications. She continues to remain active. She works for [employer]. 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 He is going to next week for treatment/evaluation. He is suffering from intractable atrial fibrillation. She is still getting over the loss of her mother. Rates her pain as a 5/10. ALLERGIES: SULFA. CURRENT MEDICATIONS: Venlafaxine 150 mg, oxycodone 5 mg 1 p.o. t.i.d., Flexeril 10 mg t.i.d., multivitamins, Biaxin 1000 mcg, Caltrate 600 mg, probiotic, stool softener, docusate 6 times daily, Zyrtec and cranberry juice 15,000 mg supplement. PAIN CLINIC ASSESSMENT AND PQRS: 1. The patient does have some arthritic changes in her knees. She has some arthritic changes in her neck. Has a history of cervical problems and has undergone fusion of her cervical area at C6-C7. She is not being treated for rheumatoid arthritis. 2. Height 5 feet 7 inches, weight 203 pounds, BMI is 31.9. 3. Vital Signs: Blood pressure 136/66, heart rate 112, respiratory rate 16, room air saturation 96%, temperature 98.2. 4. Pain intensity 5/10. 5. Fall history: The patient has not fallen in the last 3 months. 6. Blood thinner. The patient is not on a blood thinning medication. 7. Hypertension. The patient is not being treated for hypertension. 8. Opioids greater than 6 weeks. The patient received medication from [facility], pain clinic. 9. Risk assessment tool, low for opioid use. 10. Recreational drug [place] [address] PAIN MANAGEMENT CONSULTATION Name: ISABELLE VELOZ KIRBY Room: [facility]#: [id number] Admission: 04/22/19 Attend Phys: Vahe Dowling MD Discharge: Date of : 58 Report #: [id number] 11. Tobacco: The patient denies. 12. Alcohol. The patient denies use of alcoholic beverages. PHYSICAL EXAMINATION: GENERAL: The patient is a well-developed, well-nourished white female. Appears her stated age. She is alert and oriented x 3. Affect is appropriate. Speech is fluent. The patient is wearing glasses. She is on . NECK: Without adenopathy or JVD. The patient has a well-healed scar in the anterior portion of her neck. Status post surgery C6-C7. HEART: Regular rate. ABDOMEN: Nontender. LUNGS: Generally clear to auscultation. EXTREMITIES: Upper extremity muscle strength judged to be 5-/5 for the major muscle groups in the upper extremity. Lower extremity strength is 5/5 for the major muscle groups in the lower extremity. IMPRESSION: 1. History of fatty liver. 2. History of gastric bypass. 3. Back pain, chronic. 4. Left arm pain. 5. Chronic urinary tract infection history. 6. History of depression. 7. Cervical radiculopathy, status post C5-C6 fusion. 8. Family problems with 's medical atrial fibrillation, the patient to be seen at [facility] in the near future. 9. Mother recently . 10. Chronic history of urinary tract infections. Possible bladder cancer, being followed. RECOMMENDATIONS: We discussed treatment options with the patient. We will continue with her medications of oxycodone. She feels this medication is helpful. She rates it at 50% in improving her pain condition. Notes her pain is worse with activity, walking, standing, bending and lifting. She does not have any problems with the medications. She has taken amount of stool softener. She would like to continue with the medication and a script for this medication has been rewritten. She will continue with the oxycodone 5 mg 1 p.o. t.i.d. The patient will continue with receiving the hydrocodone opioid medications to help with her complex medical management of her pain. We would like to thank you for letting us participate in her care. We hope she continues to improve. <ELECTRONICALLY SIGNED> By: Vahe Dowling MD 05/05/19 0909 1441 [id number]. MD TALAT Carvalho
== END ==
LOC: M.PC 06:02
DX: Z76.0 Encounter for issue of repeat prescription (principal); G89.29 Other chronic pain; M54.12 Radiculopathy, cervical region; M54.9 Dorsalgia, unspecified; M79.602 Pain in left arm; I48.91 Unspecified atrial fibrillation; F32.9 Major depressive disorder, single episode, unspecified; Z88.2 Allergy status to sulfonamides; Z79.899 Other long term (current) drug therapy; Z87.440 Personal history of urinary (tract) infections

== ENCOUNTER → 2019-05-20 | Outpatient (CLI) | payer OTHER ==
--- NOTE | 2019-05-25 09:57 | PAINCON ---
[address] [address] PAIN MANAGEMENT CONSULTATION Name: ISABELLE VELOZ Room: [facility].#: [id number] Admission: 05/20/19 Attend Phys: Vahe Dowling MD Discharge: Date of : 58 Report #: [id number] THIS REPORT FOR: //name// CC: Anitha Dowling DATE OF SERVICE: 05/20/2019 CHIEF COMPLAINT: Here for medication renewal. HISTORY: The patient is a 58-year-old female. She returns today for renewal of her medications. She suffers from multiple sclerosis. Overall, things are going reasonably well. She is experiencing some pain in her upper shoulder. She has not noticed a lot of change in her physical capacity since we saw her last. Feels that her medications continue to be helpful in managing her pain. She has taken the medication as prescribed. Rates her pain as a 3/10 at this juncture. Feels that her medications provide 50% benefit in her pain control. She has taken her medication as prescribed. Notes that she is able to engage in activities, which she would not be able to without their use. Still has pain and discomfort with walking, sitting, lifting and bending. The medications are efficacious. She is not having any side effects. Feels somewhat distraught with her 's medical condition. He has been going through intractable atrial fibrillation. Feels mourning with the loss of her mother. ALLERGIES: SULFA. CURRENT MEDICATIONS: Venlafaxine 150 mg, oxycodone 5 mg 1 p.o. t.i.d., Flexeril 10 mg t.i.d., multivitamins, Biaxin 1000 mcg, Caltrate 600 mg, probiotic, stool softener-docusate 6 times daily, Zyrtec, cranberry juice 15,000 mg supplement. PAIN CLINIC ASSESSMENT AND PQRS: 1. The patient does have some arthritic changes in her knees. She is experiencing some pain and discomfort in her shoulders and back. She has some arthritic changes in her neck. Has a history of cervical problems and has undergone fusion at C6-C7. The patient is not being treated for rheumatoid arthritis. 2. Height 5 feet 7 inches, weight 204 pounds, BMI is 32. 3. Vital signs: Blood pressure 122/74, heart rate 78, respiratory rate 16, room air saturation 98%. 4. Pain intensity is 3/10. 5. Fall history: The patient has not fallen in the last 3 months. 6. Blood thinner: The patient is not on a blood thinning medication. 7. Hypertension: The patient is not being treated for hypertension. 8. Opioids greater than 6 weeks: The patient received medication from [facility], [place] [address] PAIN MANAGEMENT CONSULTATION Name: ISABELLE EVLOZ KIRBY Room: [facility]#: [id number] Admission: 05/20/19 Attend Phys: Vahe Dowling MD Discharge: Date of : 58 Report #: [id number] 9. Risk assessment tool: Low for opioid use. 10. Recreational drug use: The patient denies. 11. Tobacco: The patient denies use of tobacco. 12. Alcohol: The patient denies use of alcoholic beverages. PHYSICAL EXAMINATION: GENERAL: The patient is a well-developed, well-nourished white female. Appears her stated age. She is alert and oriented x 3. Her affect is appropriate. Speech is fluent. HEENT: Normocephalic, atraumatic. Extraocular eye muscles intact. Sclerae nonicteric. Mucous membranes are moist. NECK: Without adenopathy or JVD. The patient has a well-healed scar on the anterior portion of her neck, status post C6-C7 intervention. HEART: Rate regular. ABDOMEN: Nontender. LUNGS: Clear to auscultation. EXTREMITIES: Upper extremity muscle strength judged to be 5-/5 for the major muscle groups in the upper extremity. The patient has some pain in the upper shoulders, left than the right side. Lower extremity muscle strength judged to be 5/5 for the major muscle groups in the lower extremity. IMPRESSION: 1. History of fatty liver. 2. History of gastric bypass. 3. Back pain-chronic. 4. Left arm pain. 5. Chronic urinary tract infection history. 6. History of depression. 7. Cervical radiculopathy, status post C5-C6 fusion. 8. 's medical problems with chronic atrial fibrillation and follows at . 9. Mother's recent , depression. 11. Chronic history of urinary tract infections. Possible bladder cancer, being followed. RECOMMENDATIONS: We discussed treatment options with the patient. Overall, things are going reasonably well. She finds her medications are helpful. She has taken the medication as prescribed. She is aware that opioid medications can be helpful, but can be problematic in some patients. She has taken the medication as prescribed. Show no signs of addiction. She is taking the medications and finds that these continue to make daily life more palatable. A script for her medications has been rewritten. She will continue with hydrocodone 5 mg 1 p.o. q.i.d. or t.i.d. She will call us if she has any concerns. The patient is aware that opioid medications have caused of a number of patients. Last year, approximately 70,000 people as a result [place] [address] PAIN MANAGEMENT CONSULTATION Name: ISABELLE VELOZ KIRBY Room: [facility]#: [id number] Admission: 05/20/19 Attend Phys: Vhae Dowling MD Discharge: Date of : 58 Report #: [id number] We would like to thank you for letting us participate in her care. We hope she continues to improve. <ELECTRONICALLY SIGNED> By: Vahe Dowling MD 05/25/19 0957 1341 [id number]. Joe Dowling MD /nt
== END ==
LOC: M.PC 11:17
DX: G89.29 Other chronic pain (principal); M54.12 Radiculopathy, cervical region; M43.22 Fusion of spine, cervical region; I48.20 Chronic atrial fibrillation, unspecified; F32.9 Major depressive disorder, single episode, unspecified

== ENCOUNTER → 2019-06-17 | Outpatient (CLI) | payer OTHER ==
[~2019-06-17] MED LIST changes: -EFFEXOR XR150 MG PO; +EFFEXOR XR75 MG PO; +OXYCODONE-ACET1 EACH PO; -OZEMPIC0.25 MG/0. SUBQ; +OZEMPIC1 MG/0.75 SUBQ
--- NOTE | ~2019-06-17 | PAINCON ---
[address] [address] PAIN MANAGEMENT CONSULTATION Name: MAGDIELISABELLE JO Room: [facility].#: [id number] Admission: 06/17/19 Attend Phys: Vahe Dowling MD Discharge: Date of : 58 Report #: [id number] THIS REPORT FOR: //name// CC: Anitha Dowling DATE OF SERVICE: 06/17/2019 CHIEF COMPLAINT: Pain in the upper back, shoulders. HISTORY: The patient is a 58-year-old female who has been followed in the pain clinic. As you may recall, she has had surgery in the neck area. She suffers from chronic neck pain. She also has right knee pain. She has had stem cell injections. She returns today indicating that her pain continues to be problematic. Rates it as 4/10. Overall, things are going reasonably well. She also suffers from multiple sclerosis. Overall, things are going reasonably well in that area. She is unable to take nonsteroidal anti-inflammatory medications because of her gastric bypass surgery. She has some concerns in regards to her liver and does not take Tylenol medications. Overall, use of oxycodone has been beneficial. Also, finds that the muscle relaxant such as Flexeril is helpful. She feels overall 70% improved with use of her medications. She has been taking her medication as prescribed. She has had no complications with them. Her still is suffering from problems with his heart rhythm. He has atrial fibrillation. ALLERGIES: SULFA. CURRENT MEDICATIONS: Venlafaxine 150 mg, oxycodone 5 mg 1 p.o. t.i.d., Flexeril 10 mg 1 p.o. t.i.d., multivitamins, Biaxin 1000 mcg, Caltrate 600 mg, probiotic, stool softener, docusate 6 times daily, Zyrtec, cranberry juice 15,000 mg supplement. PAIN CLINIC ASSESSMENT AND PQRS: 1. The patient has some changes in her knee. She has undergone stem cell placement in her right knee. Has some pain and discomfort in her shoulders and her back. Has some arthritic changes in her neck. She has undergone fusion at C6-C7. The patient is not being treated for rheumatoid arthritis. 2. Height 5 feet 7 inches, weight 209 pounds, BMI 32.7. 3. Vital Signs: Blood pressure 115/70. Heart rate 79, respiratory rate 16, room air saturation 100%, temperature 98.3. 4. Pain intensity 4/10. 5. Fall history: The patient has not fallen in the last 3 months. 6. Blood thinner. The patient is not on a blood thinning medication. 7. Hypertension. The patient is not being treated for hypertension. 8. Opioids greater than 6 weeks. The [place] [address] PAIN MANAGEMENT CONSULTATION Name: ISABELLE VELOZ KIRBY Room: [facility]#: [id number] Admission: 06/17/19 Attend Phys: Vahe Dowling MD Discharge: Date of : 58 Report #: [id number] source. She has been stable on her current medications. 9. Risk assessment tool, low for opioid use. 10. Recreational drug use: The patient denies. 11. Tobacco: The patient denies. 12. Alcohol. The patient denies use of alcoholic beverages. PHYSICAL EXAMINATION: GENERAL: The patient is a well-developed, well-nourished white female. Appears her stated age. She is alert and oriented. She is quite affable. HEENT: Normocephalic, atraumatic. Extraocular eye muscles intact. Sclerae nonicteric. Mucous membranes are moist. NECK: Without adenopathy or JVD. The patient has well-healed scar on the anterior portion of her neck. This is the area of the C6-C7 intervention. HEART: Regular rate. ABDOMEN: Nontender. LUNGS: Clear to auscultation. EXTREMITIES: Upper extremity muscle strength judged to be 5-/5 for the major muscle groups in the upper extremity. The patient has pain in shoulders on the left and the right side. The patient has some soreness in the upper back area as well. IMPRESSION: 1. History of fatty liver. 2. History of gastric bypass. 3. Back pain, chronic. 4. Left arm pain. 5. Chronic urinary tract infection history. 6. History of depression. 7. Cervical radiculopathy, C5-C6 fusion. 8. with atrial fibrillation, chronic. 9. Recent mother's . 10. Chronic urinary tract infections. Possibility of bladder cancer, being followed. RECOMMENDATIONS: We discussed treatment options with the patient. At this juncture, we will continue with her current medications. She has been following in the pain clinic for over a year. She has been quite consistent with her medications. She has had no problems with them. She has had no call backs with loss of medications. At this juncture, I think we will increase her medications. We will provide her with a script for immediate release as well as a script for 4 weeks from now. She will call us if she has any problems. We did discuss the options. The patient is taking a reasonable amount of opioid medication. She finds that this helps her with her daily living. Use of a nonsteroidal anti-inflammatory would most likely be contraindicated given that the patient has had a gastric bypass and the possibility of ulcerations that [facility] [address] [place] [address] PAIN MANAGEMENT CONSULTATION Name: ISABELLE VELOZ Room: [facility]#: [id number] Admission: 06/17/19 Attend Phys: Vahe Dowling MD Discharge: Date of : 58 Report #: [id number] might occur. The patient has some problems with fatty liver. She states that she should not be taking Tylenol. We will provide the patient with Roxanol/oxycodone medications without Tylenol. She will call us if she has any concerns. A script for her medication of Roxicodone 5 mg 1 p.o. t.i.d. has been written. She will also continue with Flexeril 10 mg 1 p.o. t.i.d. She will call us if she has any concerns. We would like to thank you for letting us participate in her care. We hope she continues to improve. By: [id number]. Joe Dowling MD /nt
== END ==
LOC: M.PC 05:00
DX: M54.12 Radiculopathy, cervical region (principal); K76.0 Fatty (change of) liver, not elsewhere classified; M54.5 Low back pain; F32.9 Major depressive disorder, single episode, unspecified; M79.602 Pain in left arm

== ENCOUNTER → 2019-08-10 | Outpatient (CLI) | payer OTHER ==
--- NOTE | ~2019-08-10 | PAINCON ---
[facility] [address] [place] [address] PAIN MANAGEMENT CONSULTATION Name: ISABELLE VELOZ [id number] Admission: 08/10/19 Attend Phys: Vahe Dowling MD Discharge: Date of : 58 Report #: [id number] THIS REPORT FOR: //name// CC: Anitha Dowling DATE OF SERVICE: 08/10/2019 CHIEF COMPLAINT: The medicine still helpful. HISTORY: The patient is a 58-year-old female who has been followed in the pain clinic. As you recall, she has had neck surgery. Has chronic neck pain. The patient's has had some problems. He is suffering from chronic atrial fibrillation. He is scheduled to undergo testing in the near future. The possibility of atrial fibrillation ablation is in the future. Hopefully, this will improve his situation. She has returned today to continue all of her medications. She feels that the Roxicodone has been beneficial. ALLERGIES: SULFA. CURRENT MEDICATIONS: Venlafaxine 150 mg, oxycodone 5 mg 1 p.o. t.i.d., Flexeril 10 mg 1 p.o. t.i.d., multivitamins, Biaxin 1000 mg, Calcitrate 600 mg, probiotic, stool softener, Zyrtec, cranberry juice 15,000 mg supplement. PAIN CLINIC ASSESSMENT AND PQRS: 1. The patient does have some changes in her knees. She is undergoing stem cell placement in her right knee. Has had some discomfort in her shoulders. Has a history of C6-C7 fusion. 2. The patient is not being treated for rheumatoid arthritis. 3. Height 5 feet 7, weight 206 pounds, BMI is 32. 4. Vital signs: Blood pressure 110/71, heart rate 83, respiratory rate 16, room air saturation 100%. 5. Pain intensity is 3/10, temperature was 98 degrees. 6. Fall history: The patient has not fallen in the last 3 months. 7. Blood thinner. The patient is not on a blood thinning medication. 8. Hypertension. The patient is not being treated for hypertension. 9. Opioids greater than 6 weeks. The patient received medication from one source, pain clinic. 10. Risk assessment tool, low for opioid use. 11. Recreational drug use: The patient denies. 12. Tobacco: The patient denies. 13. Alcohol. The patient denies except on rare occasion. PHYSICAL EXAMINATION: GENERAL: The patient is a well-developed, well-[place] [address] PAIN MANAGEMENT CONSULTATION Name: ISABELLE VELOZ Room: [facility]#: [id number] Admission: 08/10/19 Attend Phys: Vahe Dowling MD Discharge: Date of : 58 Report #: [id number] her stated age. She is alert and oriented x 3. Affect is appropriate. Speech is fluent. HEENT: Normocephalic, atraumatic. Extraocular eye muscles intact. Sclerae nonicteric. Mucous membranes are moist. NECK: Without adenopathy or JVD. The patient has a well-healed scar in the anterior portion of her neck secondary to a C6-C7 intervention. HEART: Regular rate. ABDOMEN: Nontender. LUNGS: Clear to auscultation. EXTREMITIES: Upper extremity muscle strength judged to be 5-/5 for the major muscle groups in the upper extremity. The patient has pain in her shoulders, left and right side. The patient has some soreness in the lower portion of her back. IMPRESSION: 1. History of fatty liver disease. 2. History of gastric bypass. 3. Back pain, chronic. 4. Left arm pain. 5. Chronic urinary tract infection history. 6. History of depression. 7. Cervical radiculopathy, C5-C6 fusion. 8. with chronic atrial fibrillation, possible ablation in the near future. 9. Recent mother's . 10. Chronic urinary tract infections, possibility of bladder cancer, being followed. 11. History of multiple sclerosis. RECOMMENDATIONS: We will continue with her current medical regimen. She is aware that opioid medications can be helpful. Some patients have developed dependence. She has not shown any signs of dependency. She has taken her medications as prescribed. She is feeling better about her . He is possibly undergoing an ablation in the near future to help with his chronic atrial fibrillation. He is in and out of atrial fibrillation at this juncture. He has followed up at . She has taken the medication as prescribed. She will call us if she has any concerns. Her multiple sclerosis is stable. We would like to thank you for letting us participate in her care. We hope she continues to improve. By: 1100 [id number]. Joe Dowling MD /esther
== END ==
LOC: M.PC 09:30
DX: M54.2 Cervicalgia (principal); M54.5 Low back pain; M43.22 Fusion of spine, cervical region; K76.0 Fatty (change of) liver, not elsewhere classified; F32.9 Major depressive disorder, single episode, unspecified; N39.0 Urinary tract infection, site not specified; G35 Multiple sclerosis

== ENCOUNTER → 2019-10-05 | Outpatient (CLI) | payer OTHER ==
--- NOTE | 2019-10-13 08:25 | PAINCON ---
[address] [address] PAIN MANAGEMENT CONSULTATION Name: ISABELLE VELOZ Room: [facility]#: [id number] Admission: 10/05/19 Attend Phys: Vahe Dowling MD Discharge: Date of : 58 Report #: [id number] THIS REPORT FOR: //name// cc: Anitha Do MD, Lin W. MD ~ THIS REPORT FOR: //name// CC: Anitha Dowling DATE OF SERVICE: 10/05/2019 CHIEF COMPLAINT: Pain continues to be helped with medication. HISTORY: The patient is a 58-year-old female who has been followed in the pain clinic because of chronic pain in her neck, back and shoulders. She notes that the pain in the right shoulder continues to be somewhat problematic. She is considering rotator cuff surgery. She is wanting to put this off. She will only do it as a last measure. She feels that her medications of oxycodone continue to be helpful. She rates her pain as about 70% improved with medications. As you may recall, she has elevated liver function tests in the past. She has had a fusion in her neck at C6-C7. She also has been treated for multiple sclerosis. At this point, her condition seems to be somewhat stable. ALLERGIES: SULFA. CURRENT MEDICATIONS: Venlafaxine 150 mg, oxycodone 5 mg 1 p.o. t.i.d., Flexeril 10 mg 1 p.o. t.i.d., multivitamins, Biaxin 1000 mg, Calcitrate 600 mg, probiotic, stool softener, Zyrtec, cranberry juice 15,000 mg supplement. PAIN CLINIC ASSESSMENT AND PQRS: 1. The patient does have some changes in her knee. She is undergoing stem cell placement in her right knee. She has had some discomfort in her shoulders. Has a history of C6-C7 fusion. 2. The patient is not being treated for rheumatoid arthritis. 3. Height 5 feet 6 inches, weight 208 pounds, BMI is 33.7. 4. Vital Signs: Blood pressure 123/76, heart rate 83, respiratory rate 16, room air saturation 99%, temperature 98.6. 5. Pain intensity 08/23. 6. Fall history: The patient has not fallen in the last 3 months. 7. Blood thinner. The patient is not on a blood thinning medication. 8. Hypertension. The patient is not being treated for hypertension. 9. Opioids greater than 6 weeks. The patient receives medication from one source the pain clinic. 10. Risk assessment tool, low for opioid use. 11. Recreational drug use: [place] [address] PAIN MANAGEMENT CONSULTATION Name: MAGDIEL,ISABELLE J Room: [facility]#: [id number] Admission: 10/05/19 Attend Phys: Vahe Dowling MD Discharge: Date of : 58 Report #: [id number] 12. Tobacco: The patient denies. 13. Alcohol. The patient does on rare occasion. PHYSICAL EXAMINATION: GENERAL: The patient is a well-developed, well-nourished white female. Appears her stated age. She is alert and oriented x 3. Her affect is appropriate. Speech is fluent. HEENT: Normocephalic, atraumatic. Extraocular eye muscles intact. Sclerae nonicteric. Mucous membranes are moist. NECK: Without adenopathy or JVD. Neck with some limited range of motion. The patient has a well-healed scar in the anterior portion of her neck in the C6-C7 area. HEART: Regular rate. ABDOMEN: Nontender. LUNGS: Clear to auscultation. EXTREMITIES: Upper extremity muscle strength judged to be 5-/5 for the major muscle groups in the upper extremity. The patient has pain and discomfort in her shoulder on the left than right side. The patient has some pain in the low back area. IMPRESSION: 1. History of fatty liver disease. 2. History of gastric bypass. 3. Back pain, chronic. 4. Left arm pain. 5. Arm pain -- rotator cuff. 6. Chronic urinary tract infection history. 7. History of depression. 8. Cervical radiculopathy with fusion C5-C6. 9. with chronic atrial fibrillation, possible ablation and additional treatment in the future. 10. History of multiple sclerosis, stable. RECOMMENDATIONS: We discussed treatment options with the patient. At this juncture, we will continue with her medications. Possible complications of opioid medications have again been reviewed. They include less efficacy because of chronic use. The patient feels that the medications overall are going well. She rates her pain as about 70% improved. Does continue to have pain and discomfort in the rotator cuff area on the right shoulder. She is not thinking about surgery unless it is absolutely necessary because she continues to monitor her 's care. He continues to have atrial fibrillation with heart failure. Her continues to stay busy. He is remodeling the house. He is in [place]. They will continue to follow up with his cardiac physician. We would like to thank you for letting us participate in her care. We hope she [address] [place] [address] PAIN MANAGEMENT CONSULTATION Name: ISABELLE VELOZ Room: [facility]#: [id number] Admission: 10/05/19 Attend Phys: Vahe Dowling MD Discharge: Date of : 58 Report #: [id number] continues to improve. A script for her medications of oxycodone 5 mg 1 p.o. t.i.d. has been provided for the next 2 months. <ELECTRONICALLY SIGNED> By: Vahe Dowling MD 10/13/19 0825 [id number]. Joe Dowling MD /[facility]
== END ==
LOC: M.PC 04:21
DX: M54.9 Dorsalgia, unspecified (principal); M54.12 Radiculopathy, cervical region; F32.9 Major depressive disorder, single episode, unspecified; M79.602 Pain in left arm

== ENCOUNTER → 2019-11-30 | Outpatient (CLI) | payer OTHER ==
--- NOTE | ~2019-11-30 | PAINCON ---
[address] [address] PAIN MANAGEMENT CONSULTATION Name: ISABELLE VELOZ Room: [facility].#: [id number] Admission: 11/30/19 Attend Phys: Vahe Dowling MD Discharge: Date of : 58 Report #: [id number] THIS REPORT FOR: //name// cc: Anitha Do MD, Lin W. MD ~ THIS REPORT FOR: //name// CC: Anitha Dowling DATE OF SERVICE: 11/30/2019 CHIEF COMPLAINT: Upper back and neck pain. HISTORY: The patient is a 59-year-old female who has been followed in the pain clinic. She continues to have pain in her neck and back. She also has some pain involving her shoulders. The right side is most problematic. She has been more active. She is being followed by her primary. She has noted that her liver enzymes are somewhat elevated. She has stopped using Tylenol. She feels that her medications are helpful. She is about 70% improved with her current medical regimen. Her has had some problems with his heart rate. He has had chronic atrial fibrillation. He has been feeling tired. She states that the ejection fraction is about 40%. She continues to work and do activities at home. As you may recall, she has had a fusion of her neck at C6-C7. She does have a history of multiple sclerosis. The condition at this point seems to be somewhat stable. ALLERGIES: SULFA. CURRENT MEDICATIONS: Venlafaxine 150 mg, oxycodone, 5 mg 1 p.o. t.i.d., Flexeril 10 mg 1 p.o. t.i.d., multivitamins, Biaxin 1000 mg, Caltrate 600 mg, probiotic, stool softener, Zyrtec, cranberry juice 15,000 units supplement. PAIN CLINIC ASSESSMENT AND PQRS: 1. The patient has some changes in her knee. She has continued to have some discomfort. She has had stem cell replacement in her right knee. 2. The patient is not being treated for rheumatoid arthritis. 3. Height 5 feet 7 inches, weight 211 pounds, BMI is 33. 4. Vital signs: Blood pressure 121/69, heart rate 83, respiratory rate 16, room air saturation 98%, temperature 98. 5. Pain intensity 09/20. 6. Fall history: The patient has not fallen in the last 3 months. 7. Blood thinner. The patient is not on a blood thinning medication. 8. Hypertension. The patient is not being treated for hypertension. 9. Opioids greater than 6 weeks. The patient received medication from one source [place] [address] PAIN MANAGEMENT CONSULTATION Name: ISABELLE VELOZ Room: [facility]#: [id number] Admission: 11/30/19 Attend Phys: Vahe Dowling MD Discharge: Date of : 58 Report #: [id number] 10. Risk assessment tool, low for opioids. 11. Recreational drug use. The patient denies. 12. Tobacco: The patient denies. 13. Alcohol: The patient drinks on rare occasion. PHYSICAL EXAMINATION: GENERAL: The patient is a well-developed, well-nourished white female. Appears her stated age. She is alert and oriented x 3. Her affect is appropriate. Speech is fluent. HEENT: Normocephalic, atraumatic. Extraocular eye muscles intact. Sclerae nonicteric. Mucous membranes are moist. MUSCULOSKELETAL: The patient has some pain and decreased range of motion in her shoulders. Notes the pain on the right side is more problematic. She has a well-healed scar on the anterior portion of her neck in the area of the C6-C7 fusion. HEART: Regular rate. ABDOMEN: Nontender. LUNGS: Generally clear. EXTREMITIES: Upper extremity muscle strength judged to be 5-/5 for the major muscle groups in the upper extremity. The patient has discomfort in her shoulder on the left side. Has some discomfort on the right side as well. Notes some low back discomfort. IMPRESSION: 1. History of fatty liver disease. 2. History of gastric bypass. 3. Back pain/chronic. 4. Left arm pain. 5. Chronic urinary tract infection history. 6. History of depression. 7. Cervical radiculopathy with fusion at C5-C6. 8. with chronic atrial fibrillation. 9. Multiple sclerosis, stable. RECOMMENDATIONS: We discussed treatment options with the patient. At this juncture, we will continue with her medications. She is aware that opioid medications can become less effective as the time goes on. She feels that her pain medicines are beneficial and provide about 70% improvement. She continues to move her shoulders and arms. She declines surgery unless it becomes mandatory. A script for her medications have been rewritten. She will continue with Roxicodone 5 mg 1 p.o. t.i.d. She will call us if she has any concerns. [address] [address] PAIN MANAGEMENT CONSULTATION Name: ISABELLE VELOZ Room: [facility]#: [id number] Admission: 11/30/19 Attend Phys: Vahe Dowling MD Discharge: Date of : 58 Report #: [id number] We would like to thank you for letting us participate in her care. Hopefully, her 's health continues to remain stable and improve. By: 1450 [id number]. Joe Dowling MD /nt
== END ==
LOC: M.PC 05:04
DX: M54.12 Radiculopathy, cervical region (principal); M79.602 Pain in left arm; G35 Multiple sclerosis; I10 Essential (primary) hypertension; F11.20 Opioid dependence, uncomplicated; Z95.1 Presence of aortocoronary bypass graft; Z98.84 Bariatric surgery status; Z86.39 Personal history of other endocrine, nutritional and metabolic disease; Z79.899 Other long term (current) drug therapy

== ENCOUNTER → 2020-01-25 | Outpatient (CLI) | payer OTHER ==
--- NOTE | 2020-01-26 11:31 | PAINCON ---
[address] [address] PAIN MANAGEMENT CONSULTATION Name: ISABELLE VELOZ Room: [facility].#: [id number] Admission: 01/25/20 Attend Phys: Vahe Dowling MD Discharge: Date of : 58 Report #: [id number] THIS REPORT FOR: //name// cc: Anitha Do MD, Lin W. MD ~ THIS REPORT FOR: //name// CC: Anitha Dowling DATE OF SERVICE: 01/25/2020 CHIEF COMPLAINT: More pain in the upper back and pain radiating down into the shoulders. HISTORY: The patient is a 59-year-old female who has been followed in the Pain Clinic because of chronic pain. She has neck pain as well as back pain. At this point, she is having more pain in her shoulders. She has had surgery in the cervical area with fusion at C5-C6. She now feels that the pain is becoming more of a problem and would like to have imaging. She rates the pain as a 3/10. She is having some burning sensation, which radiates down into her left elbow. She is not having any complications from her medications. She feels that overall they are helpful. Notes that with activity, lifting and bending can be more problematic. Notes that her pain improves with use of heat and rest. She has some problems with her liver and she is not sure whether or not these are any of her symptoms may be as a result of liver enzyme problems. ALLERGIES: SULFA. CURRENT MEDICATIONS: Include Venlafaxine 150 mg, oxycodone 5 mg 1 p.o. t.i.d., Flexeril 10 mg 1 p.o. t.i.d., multivitamins, Biaxin 1000 mg, Caltrate 600 mg, probiotic, stool softener, Zyrtec, and cranberry juice 15,000 units supplement. PAIN CLINIC ASSESSMENT AND PQRS: 1. The patient has some changes in her knees. She continues to have some pain and discomfort in the knee area. She has had stem cell replacements in her right knee. The patient is experiencing some pain in the left arm from arthritic changes in her neck. 2. The patient is not being treated for rheumatoid arthritis. 3. Height 5 feet 7 inches, weight 211 pounds, BMI is 33.1. 4. Vital signs: Blood pressure 117/73, heart rate 93, respiratory rate 16, room air saturation 100%, and temperature 98.6. 5. Pain intensity 3/10. 6. Fall history: The patient has not fallen in the last 3 months. 7. Blood thinner. The patient is not on a blood thinning medication. 8. Hypertension. The patient is [place] [address] PAIN MANAGEMENT CONSULTATION Name: MAGDIELNILESLorie Selby Room: [facility]#: [id number] Admission: 01/25/20 Attend Phys: Vahe Dowling MD Discharge: Date of : 58 Report #: [id number] 9. Opioids greater than 6 weeks. The patient received medication from one source the Pain Clinic. 10. Risk assessment tool, low for opioid use. 11. Recreational drug use. The patient denies. 12. Tobacco: The patient denies. 13. Alcohol: The patient drinks on rare occasion. PHYSICAL EXAMINATION: GENERAL: The patient is a well-developed, well-nourished white female. Appears her stated age. She is alert and oriented x 3. Her affect is appropriate. Speech is fluent. HEENT: Normocephalic, atraumatic. Extraocular eye muscles intact. Sclerae nonicteric. Mucous membranes are moist. The patient is wearing a mask. MUSCULOSKELETAL: Upper extremity muscle strength judged to be 5-/5 for the major muscle groups in the upper extremity. The patient notes some pain and discomfort in the right and left arms. Notes pain that is radiating down into the left elbow with some burning sensation. She has a well-healed scar in the anterior portion of her neck in the area of the C6-C7. HEART: Regular rate. ABDOMEN: Nontender. LUNGS: Generally clear. EXTREMITIES: Upper extremity muscle strength 5/5 for the right and 5/5 for the left. Lower extremity muscle strength judged to be 5/5 in the lower extremity as well. IMPRESSION: 1. History of cervical radicular pain with fusion at C5-C6. 2. History of gastric bypass. 3. Back pain, chronic. 4. Left arm pain. 5. Chronic urinary tract infection history. 6. History of depression. 7. with chronic atrial fibrillation. 8. Multiple sclerosis, stable. RECOMMENDATIONS: We discussed treatment options with the patient. At this juncture, she is feeling her pain is more problematic in the neck and radiating down into her arm. We will proceed with an MRI of her neck to try to note any changes. The patient will also continue with her opioid medications of oxycodone. She feels that these medications continue to be helpful, did not cause any problems with her thinking. She will call us if she has any concerns. Overall, she feels that she has been getting about 70% improvement with her current medical regimen. We would like to thank you for letting us participate in her care. We hope she continues to improve. A script for her medications of oxycodone 5 mg 1 p.o. [facility] [address] [place] [address] PAIN MANAGEMENT CONSULTATION Name: ISABELLE VELOZ Room: [facility]#: [id number] Admission: 01/25/20 Attend Phys: Vahe Dowling MD Discharge: Date of : 58 Report #: [id number] q.i.d. had been written. The patient is aware that opioid medications can become less effective over time because of development of tolerance. <ELECTRONICALLY SIGNED> By: Vahe Dowling MD 01/26/20 1131 1111 [id number]. Joe Dowling MD /nt
== END ==
LOC: M.PC 05:02
PROVIDERS: ATTEND Anesthesiology Pain Medicine
DX: Z12.31 Encounter for screening mammogram for malignant neoplasm of breast (principal); M54.9 Dorsalgia, unspecified; G35 Multiple sclerosis; M79.602 Pain in left arm; Z98.84 Bariatric surgery status; Z87.39 Personal history of other diseases of the musculoskeletal system and connective tissue; Z87.440 Personal history of urinary (tract) infections; Z88.2 Allergy status to sulfonamides; Z79.899 Other long term (current) drug therapy

== ENCOUNTER → 2021-02-16 | Outpatient (CLI) | payer OTHER | LOC: M.RAD 15:04 | PROVIDERS: ATTEND Internal Medicine | DX: M19.011 Primary osteoarthritis, right shoulder (principal); M43.22 Fusion of spine, cervical region ==

== ENCOUNTER → 2021-04-12 | Outpatient (CLI) | payer OTHER | LOC: M.RAD 08:46 | PROVIDERS: ATTEND Internal Medicine | DX: Z12.31 Encounter for screening mammogram for malignant neoplasm of breast (principal) ==